=== PATIENT | female | born 1950 | race Caucasian/White ===

== ENCOUNTER → 2016-03-16 | Outpatient (CLI) | payer OTHER ==
[2016-03-16 17:52] LABS: BASO % 0.4 %; BASO ABS # 0.03 K/uL (0-0.2); COMPLETE YES; EOS % 4.5 %; HEMATOCRIT 40.5 % (37-47); IG% 0.1 %; LYMPH ABS # 2.56 K/uL (1.2-3.4); MEAN CELL VOLUME 76.9 fL (80-100); MEAN CORPUSCULAR HEMOGLOBIN 23.7 pg (25-34); MEAN CORPUSCULAR HGB CONC 30.9 g/dl (32-36); MEAN PLATELET VOLUME 10.1 fL (7.4-10.4); MONO % 6.8 %; NEUT % 54.2 %; PLATELET COUNT 294 K/uL (130-400); RED BLOOD COUNT 5.27 M/uL (4.2-5.4); WHITE BLOOD COUNT 7.54 K/uL (4.8-10.8)
[2016-03-16 18:05] LABS: BLOOD UREA NITROGEN 15 mg/dl (7-18); CARBON DIOXIDE 27 mmol/L (21-32); CHLORIDE 106 mmol/L (98-107); GLUCOSE 127 mg/dl (70-99); PHOSPHORUS 2.2 mg/dl (2.5-4.9); POTASSIUM 3.9 mmol/L (3.5-5.1); SODIUM 142 mmol/L (136-145)
[2016-03-17 06:34] LABS: ESTIMATED AVERAGE GLUCOSE 163 mg/dl; HA1C FLAG Normal (Normal)
== END | disposition home or self-care (01) ==
LOC: C.LABMFLN 14:51
PROVIDERS: ATTEND Family Medicine
DX: E11.9 Type 2 diabetes mellitus without complications (principal)

== ENCOUNTER → 2016-06-16 | Outpatient (CLI) | payer OTHER ==
[2016-06-16 18:01] LABS: ESTIMATED AVERAGE GLUCOSE 151 mg/dl; HA1C FLAG Normal (Normal)
[2016-06-16 18:08] LABS: BLOOD UREA NITROGEN 15 mg/dl (7-18); BUN/CREATININE RATIO 13.3 (10-20); CALCIUM 10.9 mg/dl (8.5-10.1); CARBON DIOXIDE 26 mmol/L (21-32); CHLORIDE 107 mmol/L (98-107); GLUCOSE 136 mg/dl (70-99); PHOSPHORUS 2.3 mg/dl (2.5-4.9); SODIUM 142 mmol/L (136-145)
== END | disposition home or self-care (01) ==
LOC: C.LABMFLN 13:26
PROVIDERS: ATTEND Family Medicine
DX: E11.9 Type 2 diabetes mellitus without complications (principal)

== ENCOUNTER → 2016-09-17 | Outpatient (CLI) | payer OTHER ==
[2016-09-17 17:51] LABS: BASO % 0.7 %; BASO ABS # 0.05 K/uL (0-0.2); COMPLETE YES; EOS % 3.2 %; HEMATOCRIT 40.3 % (37-47); IG% 0.1 %; LYMPH % 33.2 %; LYMPH ABS # 2.47 K/uL (1.2-3.4); MEAN CELL VOLUME 77.9 fL (80-100); MEAN CORPUSCULAR HEMOGLOBIN 24.4 pg (25-34); MEAN CORPUSCULAR HGB CONC 31.3 g/dl (32-36); MEAN PLATELET VOLUME 10.2 fL (7.4-10.4); MONO % 6.4 %; NEUT % 56.4 %; PLATELET COUNT 337 K/uL (130-400); RED BLOOD COUNT 5.17 M/uL (4.2-5.4); WHITE BLOOD COUNT 7.45 K/uL (4.8-10.8)
[2016-09-17 18:01] LABS: ALT/SGPT 23 U/L (12-78); BLOOD UREA NITROGEN 14 mg/dl (7-18); BUN/CREATININE RATIO 14.7 (10-20); CALCIUM 10.9 mg/dl (8.5-10.1); CARBON DIOXIDE 28 mmol/L (21-32); CHLORIDE 105 mmol/L (98-107); CHOLESTEROL 176 mg/dl (0-200); CREATININE 0.97 mg/dl (0.60-1.20); GLUCOSE 117 mg/dl (70-99); POTASSIUM 3.9 mmol/L (3.5-5.1); SODIUM 139 mmol/L (136-145); TRIGLYCERIDES 249 mg/dl (0-150); VERY LOW DENSITY LIPOPROT CALC 50 mg/dl
[2016-09-17 18:10] LABS: ALB/GLOB RATIO 1.3 (0.9-2); ALKALINE PHOSPHATASE 66 U/L (45-117); AST/SGOT 14 U/L (15-37); CHOLESTEROL/HDL RATIO 3.2; HDL CHOLESTEROL 55 mg/dl; LDL CHOLESTEROL CALCULATED 71 mg/dl; RHEUMATOID FACTOR < 10.0 U/mL (0-15); THYROID STIMULATING HORMONE 0.838 uIu/ml (0.300-4.500)
[2016-09-18 07:07] LABS: ESTIMATED AVERAGE GLUCOSE 151 mg/dl; HA1C FLAG Normal (Normal)
== END | disposition home or self-care (01) ==
LOC: C.LABMFLN 14:31
PROVIDERS: ATTEND Family Medicine
DX: E11.9 Type 2 diabetes mellitus without complications (principal); E78.5 Hyperlipidemia, unspecified; M15.9 Polyosteoarthritis, unspecified

== ENCOUNTER → 2017-04-02 | Outpatient (CLI) | payer OTHER ==
[2017-04-02 17:54] LABS: ALBUMIN 3.8 gm/dl (3.4-5.0); BLOOD UREA NITROGEN 20 mg/dl (7-18); CALCIUM 10.6 mg/dl (8.5-10.1); CARBON DIOXIDE 30 mmol/L (21-32); GLUCOSE 113 mg/dl (70-99); PHOSPHORUS 2.1 mg/dl (2.5-4.9); POTASSIUM 4.1 mmol/L (3.5-5.1); SODIUM 140 mmol/L (136-145)
[2017-04-03 07:23] LABS: HEMOGLOBIN A1C 6.5 % (4.5-5.6)
== END | disposition home or self-care (01) ==
LOC: C.LABMFLN 13:39
PROVIDERS: ATTEND Family Medicine
DX: R82.90 Unspecified abnormal findings in urine (principal); E11.9 Type 2 diabetes mellitus without complications

== ENCOUNTER → 2017-05-17 | Outpatient (CLI) | payer OTHER ==
[~2017-05-17] MED LIST: AMLO2.5T PO; CETI10TA84 PO; EMPA1TAB PO; LORA-741 PO; LOSA1TAB38 PO; METF-384 PO; NXM/40 PO; OMEG10007 PO; OXYC-57 PO; PIND10TA PO; PRMVC TOP; TROS20TA3 PO
== END | disposition home or self-care (01) ==
LOC: C.LABMFLN 13:02
PROVIDERS: ATTEND Internal Medicine Nephrology
DX: R80.9 Proteinuria, unspecified (principal); E83.52 Hypercalcemia

== ENCOUNTER → 2017-06-08 | Outpatient (CLI) | payer OTHER ==
[2017-06-08 18:07] LABS: ALBUMIN 3.9 gm/dl (3.4-5.0); BLOOD UREA NITROGEN 17 mg/dl (7-18); CALCIUM 10.4 mg/dl (8.5-10.1); CARBON DIOXIDE 28 mmol/L (21-32); CREATININE 0.92 mg/dl (0.60-1.20); GLUCOSE 98 mg/dl (70-99); PHOSPHORUS 2.4 mg/dl (2.5-4.9); POTASSIUM 3.8 mmol/L (3.5-5.1); SODIUM 139 mmol/L (136-145)
[2017-06-08 18:12] LABS: HEMOGLOBIN 11.8 g/dL (12.0-16.0); MEAN CELL VOLUME 77.1 fL (80-100); MEAN CORPUSCULAR HEMOGLOBIN 23.9 pg (25-34); MEAN CORPUSCULAR HGB CONC 31.1 g/dl (32-36); MEAN PLATELET VOLUME 10.1 fL (7.4-10.4); PLATELET COUNT 305 K/uL (130-400); RED CELL DISTRIBUTION WIDTH CV 16.8 % (11.5-14.5); RED CELL DISTRIBUTION WIDTH SD 47.6 fL (36.4-46.3); WHITE BLOOD COUNT 6.62 K/uL (4.8-10.8)
== END | disposition home or self-care (01) ==
LOC: C.LABMFLN 16:02
PROVIDERS: ATTEND Internal Medicine Nephrology
DX: E83.52 Hypercalcemia (principal); R80.9 Proteinuria, unspecified

== ENCOUNTER → 2017-06-11 | Outpatient (CLI) | payer OTHER ==
[2017-06-11 18:19] LABS: ALBUMIN 3.7 gm/dl (3.4-5.0); BLOOD UREA NITROGEN 15 mg/dl (7-18); CALCIUM 10.6 mg/dl (8.5-10.1); CARBON DIOXIDE 28 mmol/L (21-32); CREATININE 0.91 mg/dl (0.60-1.20); GLUCOSE 134 mg/dl (70-99); POTASSIUM 4.2 mmol/L (3.5-5.1); SODIUM 138 mmol/L (136-145)
[2017-06-11 18:20] LABS: PHOSPHORUS 2.5 mg/dl (2.5-4.9)
== END | disposition home or self-care (01) ==
LOC: C.LABMFLN 11:13
PROVIDERS: ATTEND Internal Medicine Nephrology
DX: E83.52 Hypercalcemia (principal)

== ENCOUNTER → 2017-06-25 | Day surgery (SDC) | payer OTHER ==
[2017-05-26 11:16] VITALS: Ht 154.9 cm; Wt 97.8 kg
--- NOTE | 2017-05-26 12:05 | PAT Medication Instructions ---
Service Date May 26, 2017. Current Home Medication List Amlodipine (Norvasc), 2.5 MG PO QAM Cetirizine (Zyrtec), 10 MG PO QAM Empagliflozin (Jardiance), 10 MG PO QAM Esomeprazole Magnesium (Nexium), 40 MG PO HS Estrogens, Conjugated (Premarin), 1 DOSE TOP 2XWEEK Fish Oil ([place]-3), 1 CAP PO QAM Lorazepam (Ativan), 0.5 MG PO AM/HS Losartan Potassium (Cozaar), 100 MG PO QAM Metformin Hcl (Glucophage), 1,000 MG PO BID Oxycodone/Acetaminophen 5MG/325MG (Percocet 5MG/325MG), 1 TABLET PO TID Pindolol (Visken), 10 MG PO BID Trospium Chloride (Trospium Chloride), 20 MG PO AM/HS Medication Instructions For Your Scheduled Surgery - Hold the following medications 2 weeks prior to surgery: Fish Oil ([place]-3), 1 CAP PO QAM - Hold the following medications 24 hours prior to surgery: Estrogens, Conjugated (Premarin), 1 DOSE TOP 2XWEEK - Hold the following medications the morning of surgery: Cetirizine (Zyrtec), 10 MG PO QAM Empagliflozin (Jardiance), 10 MG PO QAM Losartan Potassium (Cozaar), 100 MG PO QAM Metformin Hcl (Glucophage), 1,000 MG PO BID Trospium Chloride (Trospium Chloride), 20 MG PO AM/HS - Take the following medications the morning of surgery with a sip of water: Amlodipine (Norvasc), 2.5 MG PO QAM Lorazepam (Ativan), 0.5 MG PO AM/HS Oxycodone/Acetaminophen 5MG/325MG (Percocet 5MG/325MG), 1 TABLET PO TID (if needed, can be taken up to four hours before surgery) Pindolol (Visken), 10 MG PO BID - Take the following medications as scheduled the night before surgery: Esomeprazole Magnesium (Nexium), 40 MG PO HS Lorazepam (Ativan), 0.5 MG PO AM/HS Metformin Hcl (Glucophage), 1,000 MG PO BID Oxycodone/Acetaminophen 5MG/325MG (Percocet 5MG/325MG), 1 TABLET PO TID Pindolol (Visken), 10 MG PO BID Trospium Chloride (Trospium Chloride), 20 MG PO AM/HS If you have any questions please call us at [phone] or [phone] or [phone]
[2017-05-26 12:43] LABS: BASO % 0.3 %; BASO ABS # 0.02 K/uL (0-0.2); EOS % 2.8 %; EOS ABS # 0.17 K/uL (0-0.5); HEMATOCRIT 36.3 % (37-47); HEMOGLOBIN 11.3 g/dL (12.0-16.0); IG# 0.01 K/uL (0.00-0.02); LYMPH % 33.9 %; LYMPH ABS # 2.05 K/uL (1.2-3.4); MEAN CELL VOLUME 75.9 fL (80-100); MEAN CORPUSCULAR HEMOGLOBIN 23.6 pg (25-34); MEAN CORPUSCULAR HGB CONC 31.1 g/dl (32-36); MEAN PLATELET VOLUME 9.6 fL (7.4-10.4); MONO % 5.6 %; MONO ABS # 0.34 K/uL (0.11-0.59); NEUT % 57.2 %; NEUT ABS # 3.45 K/uL (1.4-6.5); PLATELET COUNT 307 K/uL (130-400); RED CELL DISTRIBUTION WIDTH CV 16.5 % (11.5-14.5); RED CELL DISTRIBUTION WIDTH SD 45.6 fL (36.4-46.3); WHITE BLOOD COUNT 6.04 K/uL (4.8-10.8)
--- NOTE | 2017-05-26 12:49 | DIAGNOSTIC IMAGING REPORT ---
CHEST 2 VIEWS ROUTINE CLINICAL HISTORY: 66 years-old Female presenting with preoperative assessment. TECHNIQUE: PA and lateral views of the chest were obtained. COMPARISON: None. FINDINGS: Left subclavian pacer with leads to the right atrium and right ventricular apex. Atherosclerosis of the mildly tortuous descending thoracic aorta. Cardiac silhouette normal in size. Elevation of the right hemidiaphragm. No focal opacity. No large effusion or pneumothorax. Degenerative changes of the thoracic spine. Upper abdomen normal. IMPRESSION: 1. No acute cardiopulmonary disease. Electronically signed by: Aleksandr Keller M.D. 05/26/2017 12:48 PM Dictated Date/Time: 05/26/2017 12:47 PM
[2017-05-26 12:52] LABS: PTT PATIENT 25.8 SECONDS (21.0-31.0)
[2017-05-26 13:40] LABS: HEMOGLOBIN A1C 6.5 % (4.5-5.6)
[2017-05-26 16:06] LABS: ALBUMIN 3.5 gm/dl (3.4-5.0); CALCIUM 11.2 mg/dl (8.5-10.1); CREATININE 0.84 mg/dl (0.60-1.20)
--- NOTE | 2017-06-03 08:14 | History and Physical ---
History & Physical Date Jun 03, 2017. Chief Complaint left shoulder pain History of Present Illness The patient is a 66 year old female with complaints of left shoulder pain. She is bone on bone of her left shoulder. She has tried conservative therapy with minimal relief. She would like to proceed with scheduled surgery. Past Medical/Surgical History PMHx: Hypertension, anxiety, Type II diabetes PSHx: Pacemaker, cholecystectomy, 2 polyps removed, tonsillectomy, D&C x 3 Additional History Hepatic Disease: No Endocrine Disorder: Yes Kidney Disease: No Hypertension: Yes Heart Disease: No Bleeding Tendencies: No Infectious Diseases: No Allergies Coded Allergies: Adhesives (Verified Allergy, Unknown, SKIN IRRITATION WITH TAPE, 05/26/17) Amoxicillin (Verified Allergy, Unknown, DIZZINESS RASH, 05/26/17) Cefuroxime (Verified Allergy, Unknown, HIVES, 05/26/17) Latex1 -Allergic Contact Dermititis (Verified Allergy, Unknown, RASH, 05/26) Home Medications Scheduled Amlodipine (Norvasc), 2.5 MG PO QAM Cetirizine (Zyrtec), 10 MG PO QAM Empagliflozin (Jardiance), 10 MG PO QAM Esomeprazole Magnesium (Nexium), 40 MG PO HS Estrogens, Conjugated (Premarin), 1 DOSE TOP 2XWEEK Fish Oil ([place]-3), 1 CAP PO QAM Lorazepam (Ativan), 0.5 MG PO AM/HS Losartan Potassium (Cozaar), 100 MG PO QAM Metformin Hcl (Glucophage), 1,000 MG PO BID Oxycodone/Acetaminophen 5MG/325MG (Percocet 5MG/325MG), 1 TABLET PO TID Pindolol (Visken), 10 MG PO BID Trospium Chloride (Trospium Chloride), 20 MG PO AM/HS Physical Examination Skin: warm/dry, no rash Eyes: normal inspection, EOMI ENT: normal ENT inspection Head: normocephalic, atraumatic Neck: supple, no adenopathy Respiratory/Chest: lungs clear, normal breath sounds Cardiovascular: regular rate, rhythm Abdomen / GI: normal bowel sounds, non tender Extremities: normal inspection, + pertinent finding (decreased ROM, Decreased strength flexion to 90 abduction 90 and external rotation 45) Diagnosis Left rotator cuff arthropathy Plan of Treatment Patient is scheduled for a left reverse Total Shoulder arthroplasty. She has failed conservative therapy and would like to proceed with scheduled surgery. Risks and benefits to surgery were discussed with the patient. She understands these risks and wishes to proceed. All questions were answered to her satisfaction.
[~2017-06-25] VITALS: Ht 154.9 cm; Wt 97.8 kg
[~2017-06-25] MED LIST changes: +ACETAMINOPHEN 500 MG TAB PO SCH; +ATROPINE SULFATE 0.1 MG/ML 5ML SYR IV PRN; +DEXAMETHASONE 4 MG TAB PO SCH; +DEXAMETHASONE SOD INJ 4 MG/ML VIAL ONE; +EpHEDrine SULFATE INJ 50 MG/ML AMP IV PRN; +FAMOTIDINE 20 MG TAB PO SCH; +FENTANYL CITRATE INJ 50 MCG/1 ML 2 ML VIAL IV PRN; +GABAPENTIN 300 MG CAP PO SCH; +HYDROmorphone INJ 2 MG/ML SYR/VIAL IV PRN; +LABETALOL HCL IV 5 MG/ML 20ML IV PRN; +LACTATED RINGER'S 1000ML 1,000 ML IV SCH; +MEPERIDINE HCL 25 MG/ML CARP IV PRN; +METOCLOPRAMIDE HCL 10 MG TAB PO SCH; +ONDANSETRON INJ 2 MG/ML 2 ML VIAL IV PRN; +OXYCODONE HCL 10 MG TABCR (OXYCONTIN) PO SCH; +ROPIVACAINE 0.5% 5 MG/ML 30 ML VIAL ONE; +ROPIVACAINE 5MG/ML 30 ML 150 MG, BUPIVACAINE 0.5% MPF INJ 30 ML, EpINEphrine HCL INJ 0.... INFIL SCH; +~ANCEF~ALLERGY NOTED TO ORDERED MEDICATION SCH
== END | disposition home or self-care (01) ==
LOC: C.ACU 09:10
PROVIDERS: ATTEND Orthopaedic Surgery
DX: M25.512 Pain in left shoulder (principal); Z53.09 Procedure and treatment not carried out because of other contraindication

== ENCOUNTER → 2017-06-25 | Outpatient (CLI) | payer OTHER ==
[~2017-06-25] MED LIST changes: -ACETAMINOPHEN 500 MG TAB PO SCH; -ATROPINE SULFATE 0.1 MG/ML 5ML SYR IV PRN; -DEXAMETHASONE 4 MG TAB PO SCH; -DEXAMETHASONE SOD INJ 4 MG/ML VIAL ONE; -EpHEDrine SULFATE INJ 50 MG/ML AMP IV PRN; -FAMOTIDINE 20 MG TAB PO SCH; -FENTANYL CITRATE INJ 50 MCG/1 ML 2 ML VIAL IV PRN; -GABAPENTIN 300 MG CAP PO SCH; -HYDROmorphone INJ 2 MG/ML SYR/VIAL IV PRN; -LABETALOL HCL IV 5 MG/ML 20ML IV PRN; -LACTATED RINGER'S 1000ML 1,000 ML IV SCH; -MEPERIDINE HCL 25 MG/ML CARP IV PRN; -METOCLOPRAMIDE HCL 10 MG TAB PO SCH; -ONDANSETRON INJ 2 MG/ML 2 ML VIAL IV PRN; -OXYCODONE HCL 10 MG TABCR (OXYCONTIN) PO SCH; -ROPIVACAINE 0.5% 5 MG/ML 30 ML VIAL ONE; -ROPIVACAINE 5MG/ML 30 ML 150 MG, BUPIVACAINE 0.5% MPF INJ 30 ML, EpINEphrine HCL INJ 0.... INFIL SCH; -~ANCEF~ALLERGY NOTED TO ORDERED MEDICATION SCH
== END | disposition home or self-care (01) ==
LOC: C.LABMFLN 16:44
PROVIDERS: ATTEND Family Medicine
DX: R30.0 Dysuria (principal)

== ENCOUNTER 2017-07-23 07:20 | Inpatient (IN) | payer OTHER ==
--- NOTE | 2017-06-30 18:25 | History and Physical ---
History & Physical Date June 30, 2017. Chief Complaint Left Shoulder pain History of Present Illness Patient is a 67 year old female who presents with left shoulder pain. She has tried and failed conservative therapy including cortisone injections and physical therapy. She would like to proceed with her scheduled surgery. Surgery is scheduled for 07/23/17 with a plan to home after surgery with self care. Surgery was originally scheduled for 06/25/17 but was canceled due to UTI symptoms. Pt was treated for a yeast infection the week prior to surgery. She did have a urine culture that was negative for infection in the interval, however she is having persistent burning with urination, as well as vaginal itching and swelling. She does have a follow up appointment with her PCP on for her continued symptoms. Past Medical/Surgical History PMHx: Hypertension, anxiety, Type II Diabetes PSHx: Pacemaker, cholecystectomy, 2 polyps removed, tonsillectomy, D&C x 3. Additional History Hepatic Disease: No Endocrine Disorder: Yes (Type 2 Diabetes) Kidney Disease: No Hypertension: Yes Heart Disease: No Bleeding Tendencies: No Infectious Diseases: No Allergies Coded Allergies: Adhesives (Verified Allergy, Unknown, SKIN IRRITATION WITH TAPE, 05/26/17) Amoxicillin (Verified Allergy, Unknown, DIZZINESS RASH, 05/26/17) Cefuroxime (Verified Allergy, Unknown, HIVES, 05/26/17) Latex1 -Allergic Contact Dermititis (Verified Allergy, Unknown, RASH, 05/26) Home Medications Scheduled Amlodipine (Norvasc), 2.5 MG PO QAM Cetirizine (Zyrtec), 10 MG PO QAM Empagliflozin (Jardiance), 10 MG PO QAM Esomeprazole Magnesium (Nexium), 40 MG PO HS Estrogens, Conjugated (Premarin), 1 DOSE TOP 2XWEEK Fish Oil ([place]-3), 1 CAP PO QAM Lorazepam (Ativan), 0.5 MG PO AM/HS Losartan Potassium (Cozaar), 100 MG PO QAM Metformin Hcl (Glucophage), 1,000 MG PO BID Oxycodone/Acetaminophen 5MG/325MG (Percocet 5MG/325MG), 1 TABLET PO TID Pindolol (Visken), 10 MG PO BID Trospium Chloride (Trospium Chloride), 20 MG PO AM/HS Physical Examination Skin: warm/dry, no rash Eyes: normal inspection, sclerae normal ENT: normal ENT inspection, pharynx normal Head: normocephalic, atraumatic Neck: supple, no adenopathy, trachea midline Respiratory/Chest: lungs clear, normal breath sounds Cardiovascular: regular rate, rhythm, no murmur Extremities: normal inspection, + pertinent finding (Decreased ROM and strength in all directions. Flexion to 90, abduction to 90, ER to 45 degrees. ) Addiitonal Comments: X-ray findings: Bone on bone at the GH joint with osteophyte formation of the glenoid as well as the humeral head, significant humeral head elevation with rounding of the humeral head. Diagnosis Left Rotator Cuff Arthropathy Plan of Treatment Treatment options were discussed with the patient. She has failed conservative management of injections, PT, and NSAIDs. Risks, benefits, and alternatives to surgery including but not limited to infection, DVT, pain, stiffness, need for revision surgery, damage to blood vessels, damage to nerves, PE, , were discussed with the patient and she would like to proceed with Left Reverse TSA. All questions were answered. Pt is scheduled for Left reverse total shoulder arthroplasty on 07/23/17. Patient will f/u with her PCP on 07/01/17 to address her urinary symptoms.
[2017-07-08 14:54] VITALS: BMI 41.0
[~2017-07-23] VITALS: Ht 154.9 cm; Wt 97.8 kg
[~2017-07-23 07:20] MED LIST changes: +KRIL1CAP7 PO; +LACTATED RINGER'S 1000ML 1,000 ML IV SCH; -OMEG10007 PO
[2017-07-23] MEDS ORDERED: ATROPINE SULFATE 0.1 MG/ML 5ML SYR IV PRN (07:30)
[2017-07-23] MEDS ORDERED: EpHEDrine SULFATE INJ 50 MG/ML AMP IV PRN (07:30)
[2017-07-23] MEDS ORDERED: PHENYLEPHRINE 100MCG/ML 5ML SYR IV PRN (07:30)
[2017-07-23] MEDS ORDERED: HYDROmorphone INJ 0.5 MG/0.5 ML SYR IV PRN (07:30)
[2017-07-23] MEDS ORDERED: ONDANSETRON INJ 2 MG/ML 2 ML VIAL IV PRN ×2 (07:30→14:45)
[2017-07-23 07:50] VITALS: BP 147/80; PULSE 81; TEMP 37.1; O2SAT 95; Ht 154.9 cm; Wt 97.8 kg
[2017-07-23] MEDS ORDERED: ROPIVACAINE 0.5% 5 MG/ML 30 ML VIAL ONE (08:03)
[2017-07-23] MEDS ORDERED: inhaler INH (08:05)
--- NOTE | 2017-07-23 08:37 | History & Physical Bridge Note ---
H&P Re-Evaluation Bridge Note: I have examined the patient, reviewed the History & Physical and in the interval since the performance of the History & Physical I have noted the following changes of clinical significance: No changes noted
[2017-07-23] MEDS ORDERED: DEXAMETHASONE 4 MG TAB PO SCH (09:00)
[2017-07-23] MEDS ORDERED: GABAPENTIN 300 MG CAP PO SCH (09:00)
[2017-07-23] MEDS ORDERED: VANCOMYCIN IV 1,500 MG in SODIUM CHLORIDE 0.9% 500ML 500 ML IV SCH ×2 (09:00→22:00)
[2017-07-23] MEDS ORDERED: METOCLOPRAMIDE HCL 10 MG TAB PO SCH (09:00)
[2017-07-23] MEDS ORDERED: CeleBREX 200 MG CAP PO SCH (09:00)
[2017-07-23] MEDS ORDERED: ROPIVACAINE 5MG/ML 30 ML 150 MG, BUPIVACAINE 0.5% MPF INJ 30 ML, EpINEphrine HCL INJ 0.... INFIL SCH ×8 (09:00)
[2017-07-23] MEDS ORDERED: FAMOTIDINE 20 MG TAB PO SCH (09:00)
[2017-07-23] MEDS ORDERED: ACETAMINOPHEN 500 MG TAB PO SCH (09:00)
[2017-07-23] MEDS: TRANEXAMIC ACID INJ 1,000 MG x 2 Bags IV SCH ×4 (09:30→10:38)
[2017-07-23] MEDS ORDERED: MIDAZOLAM HCL 1 MG/ML 2ML VIAL ONE (10:02)
[2017-07-23] MEDS ORDERED: FENTANYL CITRATE INJ 50 MCG/1 ML 2 ML VIAL ONE (10:02)
[2017-07-23] MEDS ORDERED: POVIDONE-IODINE OP SOLN 30 ML BTL ONE (11:06)
[2017-07-23] MEDS ORDERED: VANCOMYCIN HCL 1000MG/20ML VIAL ONE (11:07)
[2017-07-23] MEDS ORDERED: BACITRACIN 50000 UNIT VIAL ONE (11:07)
[2017-07-23] MEDS ORDERED: LIDOCAINE HCL 2% 2 ML VIAL (20MG/ML) ONE (12:54)
[2017-07-23] MEDS ORDERED: GLYCOPYRROLATE INJ 0.2 MG/ML VIAL ONE (12:54)
[2017-07-23] MEDS ORDERED: PHENYLEPHRINE HCL INJ 10 MG/ML VIAL ONE (12:54)
[2017-07-23] MEDS ORDERED: SUCCINYLCHOLINE CHLORIDE 20 MG/ML 10 ML VIAL IV ONE (12:54)
[2017-07-23] MEDS ORDERED: ONDANSETRON INJ 2 MG/ML 2 ML VIAL ONE (12:54)
[2017-07-23] MEDS ORDERED: NEOSTIGMINE METHYLSULFATE 5 MG/5 ML SYR ONE (12:54)
[2017-07-23] MEDS ORDERED: PROPOFOL IV EMULSION 10 MG/ML 20 ML VIAL ONE (12:54)
[2017-07-23] MEDS ORDERED: EpHEDrine SULFATE 50MG/5ML SYR ONE (12:54)
[2017-07-23] MEDS ORDERED: ROCURONIUM BROMIDE 10 MG/ML 5 ML VIAL ONE (12:56)
[2017-07-23] MEDS ORDERED: ALBUMIN HUMAN 5% 12.5 GM/250 ML VIAL IV ONE (13:52)
--- NOTE | 2017-07-23 14:08 | [facility] Operative Report ---
Operative Report Operative Date July 23, 2017. Pre-Operative Diagnosis Left rotator cuff arthropathy Post-Operative Diagnosis Left rotator cuff arthropathy same plus biceps tear Procedure(s) Performed Left reverse total shoulder arthroplasty plus biceps tenodesis Surgeon Dr. Crouch Sole Stitcher Hand Surgeon(s) Bahman Mosley PA-C Estimated Blood Loss 400cc Findings As above Specimens A. Left humeral head Drains 2 Hemovac Anesthesia Type General Regional Complication(s) none Disposition Recovery Room / PACU Indications The patient is a 67-year-old female long-standing arthropathy of the left shoulder. She has significant humeral head elevation with articulation of the humeral head with the acromion with acetabular position of the acromion and rounding of the humeral head as well as [id number] glenohumeral joint. She has failed conservative measures including injection and anti-inflammatories. She wishes to proceed with a reverse total shoulder arthroplasty Description of Procedure Risks, benefits and alternatives to surgery including, but not limited to, infection DVT, pain, stiffness, need for revision surgery, failure to relieve all symptoms, damage to blood vessels, damage to nerves, risk of anesthesia were discussed with the patient and they wished to proceed. The patient was identified. Laterality was confirmed and marked. The patient received a preoperative antibiotic as well as an interscalene block. They were transferred to the operating room and placed in the supine position and induced into general endotracheal anesthesia per the anesthesia staff. The patient was then safely transferred to a slight beachchair position. The patient was secured in the Tenet positioner. All pressure points were well padded. The shoulder was prepped and draped in the usual sterile manner with ChloraPrep. The arm was secured in the Spider page. I made a longitudinal incision just lateral to the coracoid, sharply incising through the skin and utilizing Bovie electrocautery to achieve hemostasis. I identified the cephalic vein and mobilized it laterally with the deltoid. I mobilize the pectoralis and mobilize this medially releasing a small portion of the upper border of the pec tendon to improve visualization. I then identified and mobilized the conjoined tendon. I identified the long head of the biceps tendon. The long head of the biceps tendon had significant tendinosis and tearing proximally. I performed an in situ biceps tenodesis with interrupted #2 FiberWire suture. I then released the subscapularis. I pinned into place my humeral head version cutting guide and made my humeral head resection. I then sequentially reamed and sequentially broached. I then placed the trial humeral stem into the shoulder. I placed retractors around the glenoid and then excised the residual biceps tendon stump and glenoid labrum. I elevated the soft tissues and the inferior aspect of the glenoid to improve exposure and released tissues circumferentially. I then positioned and drilled for the central post for the glenoid plate. The glenoid plate was bone grafted with bone taken from the humeral head. I impacted the definitive glenoid plate into position and then placed a total of 4 compression screws that were then locked into position with locking caps. I then placed the glenosphere onto the plate and secured it with a locking screw. I then removed the trial humeral stem and placed the definitive humeral stem. I trialed off of the definitive stem. It was appropriate for a +0 tray and +0 liner. I then locked my definitive humeral tray into position with a torque limiting screw. As I was locking the screw into position and the stem rotated within the metaphyseal bone. 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 I removed the size 9 stem that I had initially excised and inserted. I remove the humeral tray off of this stem. I was a bit concerned that the size 11 which is the next size up stem in this system would impinge onto the medial calcar and cause a fracture. But as the 9 stem had proven to be unstable in rotation I placed an 11 mm stem into the humerus taking care to not overly impact the stem and cause a periprosthetic fracture. We were able to get stability into the poor metaphyseal bone with a size 11 with the stem abutting the medial calcar. The stem was a little proud but was still able to be reduced with a +0 tray and +0 liner. The definitive components used were [employer] Equinox: Humeral press-fit stem: 11 Standard glenoid plate Glenosphere: 38 Humeral tray:+ 0 Humeral polyethylene liner: + 0 I thoroughly irrigated the wound. Deep tissues were anesthetized with an orthomix solution. I then impacted the definitive humeral polyethylene liner into position. I then reduced the shoulder. There was good range of motion and good stability after the reduction. The wound was again thoroughly irrigated and a Betadine soak was performed. A deep drain was placed. The deltopectoral interval was closed with interrupted #1 Ethibond suture. The subcutaneous tissue was closed with interrupted 2-0 Vicryl suture. The skin was closed with shine. A sterile dressing was applied. A sling was placed. All needle and sponge counts were correct at the end of the procedure. The patient was transferred to the PACU in stable condition without apparent complication. The PA-C was necessary for assistance with procedure for assistance in positioning, prepping, draping, retraction and closure. I attest to the content of the Intraoperative Record and any orders documented therein. Any exceptions are noted below.
[2017-07-23] MEDS ORDERED: BISACODYL 10 MG SUPP PR PRN (14:45)
[2017-07-23] MEDS ORDERED: MAGNESIUM HYDROXIDE SUSP 30 ML UDC PO PRN (14:45)
[2017-07-23] MEDS ORDERED: VANCOMYCIN CONSULT ACTIVE PRN (14:45)
[2017-07-23] MEDS ORDERED: LORAZEPAM 0.5 MG TAB PO PRN (14:45)
[2017-07-23] MEDS ORDERED: MoRPHine SULFATE 4 MG/ML 1 ML CARP\\VIAL IV PRN (14:45)
[2017-07-23] MEDS ORDERED: PHENYLEPHRINE 100MCG/ML 5ML SYR ONE (14:54)
[2017-07-23] MEDS ORDERED: PHARMACY GLYCEMIC MGMT CONSULT PRN (15:05)
[2017-07-23] MEDS ORDERED: CARBOHYDRATES FOR HYPOGLYCEMIA PO PRN (15:15)
[2017-07-23] MEDS ORDERED: DEXTROSE 50% 50 ML SYR IV PRN (15:15)
[2017-07-23] MEDS ORDERED: GLUCOSE 10 TABS/TUBE PO PRN (15:15)
[2017-07-23] MEDS ORDERED: GLUCAGON FOR INJ 1 MG VIAL IM PRN (15:15)
[2017-07-23] MEDS ORDERED: GLUCOSE 40% GEL 15 GM TUBE PO PRN (15:15)
--- NOTE | 2017-07-23 15:26 | DIAGNOSTIC IMAGING REPORT ---
LEFT SHOULDER 2 VIEWS HISTORY: Post shoulder surgery COMPARISON: None. FINDINGS: There is no fracture or dislocation. Skin shine and surgical drains are in place. There is a left-sided dual-chamber pacemaker. There is a reverse left total shoulder arthroplasty. The hardware appears intact. Left basilar densities. IMPRESSION: 1. Status post left reverse total shoulder arthroplasty. No evidence for hardware complication. 2. Left basilar densities may represent atelectasis or pneumonia. Electronically signed by: Harvey Garces M.D. 07/23/2017 3:25 PM Dictated Date/Time: 07/23/2017 3:24 PM
--- NOTE | 2017-07-23 15:49 | Pharmacy Progress Note ---
Glycemic Control Intl Consult Date of Service July 23, 2017. Scope Glycemic Pharmacist consulted for glycemic control and to write orders per [facility] inpatient glycemic control protocol Objective Weight (Kilograms): 97.80 Accuchecks BSG (last 24hrs): Test 07/23/17 07:51 Bedside Glucose 106 mg/dl (70-90) HbA1c 6.5% on 05/26/17 Recent Pertinent Medications Outpatient Anti-diabetic Regimen: * Jardiance * Metformin Risk Factors for Insulin Resistance: * Steroids * Recent Surgery * Diet Assessment & Plan ASSESSMENT: * 67yo T2DM female with excellent outpatient control per recent A1c * Pt is maintained on oral antidiabetic agents as an outpatient * Oral agents are not recommended for inpatient use d/t drug interactions, changing PO intake, and difficulty titrating for acute hyper/hypoglycemia. ADA recommends re-initiating outpatient oral agents 1-2 days prior to discharge if/ when appropriate if they were held on admission. * Will hold oral agents for admission and utilize SQ basal bolus insulin regimen which is the recommended regimen for inpatient glycemic control. * Will initiate weight based insulin dosing for insulin dariusz patient * Pt received dexamethasone pre-operatively which can lead to significant long- lasting hyperglycemia. Will dose long acting insulin based on degree of hyperglycemia and titrate based on BSG trends. PLAN FOR INPATIENT GLYCEMIC CONTROL: * Holding outpatient oral diabetes medications * May consider resuming metformin POD#1 if PO intake adequate and renal function WNL * Will hold Jardiance until discharge since it is non-formulary * Basal insulin * Lantus dosing based on BSG x 1 dose today and then re-assess POD#1 * BSG below 140 mg/dl --> 20 units (0.2 units/kg) * BSG 140-199 mg/dl --> 30 units (0.3 units/kg) * BSG 200 mg/dl or above --> 40 units (0.4 units/kg) * Bolus insulin * NovoLog per scale ACHS or Q6hrs while NPO * Goal Range: Low 110 mg/dL - High 140 mg/dL * Correction Factor: 20 mg/dL/unit * Nutritional / Prandial insulin per carb ratio of 1 unit per 6 grams CHO consumed * Please note that the plan above was derived based on current level of insulin resistance and hospital stress. These recommendations are appropriate for inpatient admission only. Plan of care upon discharge will need to be reassessed to avoid potential outpatient hypo/hyperglycemia. Thank you.
--- NOTE | 2017-07-23 15:51 | Anesthesiology Progress Note ---
Anesthesia Post Op Note Date & Time July 23, 2017 at 15:50 Vital Signs Pain Intensity: 0 Vital Signs Past 12 Hours Date Time Temp Pulse Resp B/P (MAP) Pulse Ox O2 Delivery O2 Flow Rate FiO2 07/23/17 15:45 76 16 112/64 99 Nasal Cannula 2 07/23/17 15:30 76 16 103/69 99 Nasal Cannula 2 07/23/17 15:15 36.5 84 16 110/58 99 Nasal Cannula 2 07/23/17 15:05 36.5 84 16 109/63 98 Nasal Cannula 2 07/23/17 14:55 84 16 95/61 99 Oxymask 7 07/23/17 14:45 85 16 96/62 98 Oxymask 7 07/23/17 14:36 36.4 84 16 89/46 93 Oxymask 7 07/23/17 07:50 37.1 81 20 147/80 95 Room Air Notes Mental Status: alert / awake / arousable, participated in evaluation Pt Amnestic to Procedure: Yes Nausea / Vomiting: adequately controlled Pain: adequately controlled Airway Patency, RR, SpO2: stable & adequate BP & HR: stable & adequate Hydration State: stable & adequate Anesthetic Complications: no major complications apparent
[2017-07-23] MEDS: INSULIN ASPART 100 UNITS/ML 3 ML PEN SC SCH ×3 (16:00→20:48)
[2017-07-23 16:15] VITALS: BP 105/67; TEMP 36.4; O2SAT 97
[2017-07-23 16:45] VITALS: BP 103/84; PULSE 75; TEMP 36.4; O2SAT 97
[2017-07-23] MEDS ORDERED: INSULIN GLARGINE SOLOSTAR 100 UNITS/ML 3 ML PEN SC SCH (16:45)
[2017-07-23 17:52] VITALS: BP 115/69; PULSE 76; TEMP 36.6; O2SAT 100
[2017-07-23] MEDS: POTASSIUM CHLORIDE INJ 10 MEQ in SODIUM CHLORIDE 0.9% 1000ML 1,000 ML IV SCH (17:56)
[2017-07-23] MEDS ORDERED: ALUMINUM/MAGNESIUM/SIMETH (MAALOX MAX) 30 ML UDC PO PRN (18:15)
[2017-07-23 18:54] VITALS: BP 108/68; PULSE 86; TEMP 36.6; O2SAT 94
--- NOTE | 2017-07-23 19:10 | Medical Consult ---
Consultation Date of Consultation: July 23, 2017. Attending Physician: Aleksandr Crouch M.D. Reason for Consultation: 67-year-old female with past medical history of hypertension, anxiety, diabetes mellitus type 2, asthma high-grade AV block status post pacemaker, dyslipidemia and severe osteoarthritis. Patient had left shoulder pain and failed conservative therapy as an outpatient including cortisone injections. Diagnosed with Left rotator cuff arthropathy same plus biceps tear. patient presented for elective Left reverse total shoulder arthroplasty plus biceps tenodesis. Tolerated procedure well and we were consulted for medical comanagement Social History Smoking Status: Never Smoker Allergies Coded Allergies: Chlorhexidine (Verified Allergy, Intermediate, BURNING AND RASH, 07/23/17) Adhesives (Verified Allergy, Unknown, SKIN IRRITATION WITH TAPE, 07/23/17) Amoxicillin (Verified Allergy, Unknown, DIZZINESS RASH, 07/23/17) Cefuroxime (Verified Allergy, Unknown, HIVES, 07/23/17) Latex1 -Allergic Contact Dermititis (Verified Allergy, Unknown, RASH, 07/23) Uncoded Allergies: PERFUME (Allergy, Severe, SNEEZES, EYES WATER, SOB, 07/08/17) ENVIRONMENTAL ALLERGIES (Allergy, Unknown, ., 07/08/17) Current Inpatient Medications Current Inpatient Medications Medications (Trade) Dose Ordered Sig/Vanessa Route Start Time Stop Time Status Last Admin Dose Admin Lactated Ringer's 1,000 ml @ 15 mls/hr Q24H IV 07/23/17 06:00 07/24/17 05:59 07/23/17 08:07 15 MLS/HR Amlodipine Besylate (Norvasc Tab) 2.5 mg QAM PO 07/24/17 09:00 08/23/17 08:59 Cetirizine HCl (zyrTEC TAB) 10 mg QAM PO 07/24/17 09:00 08/23/17 08:59 Lorazepam (Ativan Tab) 0.5 mg BID PRN PO 07/23/17 14:45 08/22/17 14:44 Losartan Potassium (coZAAR TAB) 100 mg QAM PO 07/24/17 09:00 08/23/17 08:59 Pantoprazole Sodium (Protonix Tab) 40 mg BID PO 07/23/17 21:00 08/22/17 20:59 Miscellaneous Information (Order Awaiting Action) 1 ea QS N/A 07/24/17 00:00 08/23/17 00:00 Miscellaneous Information (Order Awaiting Action) 1 ea QS N/A 07/24/17 00:00 08/23/17 00:00 Miscellaneous Information (Order Awaiting Action) 1 ea QS N/A 07/24/17 00:00 08/23/17 00:00 Ondansetron HCl (Zofran Inj) 4 mg Q6H PRN IV 07/23/17 14:45 08/22/17 14:44 Potassium Chloride 10 meq/ Sodium Chloride 1,005 ml @ 100 mls/hr Q10H3M IV 07/23/17 17:30 08/22/17 17:29 07/23/17 17:56 100 MLS/HR Vancomycin HCl 1500 mg/Sodium Chloride 530 ml @ 200 mls/hr 2200 IV 07/23/17 22:00 07/24/17 00:38 Oxycodone HCl (Roxicodone Immediate Rel Tab) `1-2 TABS FOR PAIN `1 TAB... Q4H PRN PO 07/23/17 14:45 08/06/17 14:44 Acetaminophen (Tylenol Tab) 1,000 mg Q8 PO 07/23/17 22:00 08/22/17 21:59 Morphine Sulfate (MoRPHine SULFATE INJ) 2 mg Q4H PRN IV 07/23/17 14:45 08/06/17 14:44 Magnesium Hydroxide (Milk Of Magnesia Susp) 30 ml Q6H PRN PO 07/23/17 14:45 08/22/17 14:44 Bisacodyl (Dulcolax Supp) 10 mg DAILY PRN [place] 07/23/17 14:45 08/22/17 14:44 Miscellaneous Information (Consult Glycemic Management Pharmacy) 1 ea UD PRN N/A 07/23/17 15:05 08/22/17 15:04 Insulin Aspart (novoLOG ASPART) SLIDING SCALE ACHS SC 07/23/17 16:00 08/22/17 15:59 07/23/17 18:06 4 UNITS Glucose (Glucose 40% Gel) 15-30 GRAMS 15 GRAMS... UD PRN PO 07/23/17 15:15 08/22/17 15:14 Glucose (Glucose Chew Tab) 4-8 Tablets 4 Tabl... UD PRN PO 07/23/17 15:15 08/22/17 15:14 Dextrose (Dextrose 50% 50ML Syringe) 25-50ML 25ML FOR ... UD PRN IV 07/23/17 15:15 08/22/17 15:14 Glucagon (Glucagon Inj) 1 mg UD PRN IM 07/23/17 15:15 08/22/17 15:14 Carbohydrates (Carbohydrates For Hypoglycemia) 15-30 GRAMS 15 grams if BSG 54-69... UD PRN PO 07/23/17 15:15 08/22/17 15:14 Insulin Glargine (Lantus Solostar Pen) TODAY@1645 MT 07/23/17 16:45 07/23/17 23:59 07/23/17 18:05 30 UNITS Al Hydrox/Mg Hydrox/Simethicone (Maalox Max Susp) 15 ml Q6H PRN PO 07/23/17 18:15 08/22/17 18:14 Review of Systems Review of system Constitutional: No fever / no chills / no sweats / no weakness / no fatigue Eyes: no blurring of vision / no eye pain / no discharge / no redness ENT: no hearing loss / no epistaxis /no swallowing problems Respiratory: no cough / no wheezing / no SOB / no hemoptysis Cardiovascular: no Chest pain / no lower extremity edema / no palpitation Abdomen: no pain / no nausea / no vomiting / no constipation Musculoskeletal: no joint pain / no muscle pain / no joint swelling Genitourinary: no dysuria / no incontinence / no urinary retention Neurologic: no focal weakness / no numbness/tingling / no ataxia Psychiatric: no depression symptoms / no anxiety / no insomnia Endocrine: no excessive thirst / no excessive urination Hematologic: no abnormal bleeding / no bruising / no LN swelling Skin: No rash / no pallor Physical Exam Date Time Temp Pulse Resp B/P (MAP) Pulse Ox O2 Delivery O2 Flow Rate FiO2 07/23/17 18:54 36.6 86 15 108/68 (81) 94 Room Air 07/23/17 17:52 36.6 76 16 115/69 (84) 100 Nasal Cannula 2.5 07/23/17 16:45 36.4 75 16 103/84 (90) 97 Nasal Cannula 2.0 07/23/17 16:18 Nasal Cannula 2.0 07/23/17 16:15 36.4 16 105/67 (80) 97 Nasal Cannula 2.0 07/23/17 15:45 76 16 112/64 99 Nasal Cannula 2 07/23/17 15:30 76 16 103/69 99 Nasal Cannula 2 07/23/17 15:15 36.5 84 16 110/58 99 Nasal Cannula 2 07/23/17 15:05 36.5 84 16 109/63 98 Nasal Cannula 2 07/23/17 14:55 84 16 95/61 99 Oxymask 7 07/23/17 14:45 85 16 96/62 98 Oxymask 7 07/23/17 14:36 36.4 84 16 89/46 93 Oxymask 7 07/23/17 07:50 37.1 81 20 147/80 95 Room Air Physical examination General patient appears to be comfortable, not in acute distress HEENT: Atraumatic , normocephalic /no jaundice /no pallor /anicteric /no dry mucous membrane /normal external ear inspection Neck: Supple /no swelling /central trach Heart: S1/S2 normal/regular rate and rhythm/no gallop /no rub /no murmur Lungs: Clear to auscultation bilaterally/normal chest with expansion/no rhonchi/ no rales/no wheezing/no use of accessory muscles of respiration Abdomen: Soft/nontender/no guarding/no rebound/no organomegaly/no pulsatile mass Musculoskeletal: No swelling/no edema/no tenderness/normal range of motion Neuro exam: Awake alert oriented 3/cranial nerves II through XII appear to be intact/sensation intact/moves all extremities/no abnormal movements Psychiatric evaluation: No depressed mood/normal affect Skin: No rash on exposed skin area/no erythema Extremity: Normal pulse/no pitting edema/no clubbing or cyanosis Endocrine/lymphatic: No obvious lymphadenopathy /no lymphedema Laboratory Results Last 24 Hours Test 07/23/17 07:51 07/23/17 15:16 07/23/17 17:06 Bedside Glucose 106 mg/dl 169 mg/dl 159 mg/dl Assessment & Plan 67-year-old female with past medical history of hypertension, anxiety, diabetes mellitus type 2, asthma high-grade AV block status post pacemaker, dyslipidemia and severe osteoarthritis. Patient had left shoulder pain and failed conservative therapy as an outpatient including cortisone injections. Diagnosed with Left rotator cuff arthropathy same plus biceps tear. patient presented for elective Left reverse total shoulder arthroplasty plus biceps tenodesis. Tolerated procedure well and we were consulted for medical comanagement Assessment: Left rotator cuff arthropathy same plus biceps tear that failed outpatient conservative measures. Patient presented to the hospital for an elective orthopedic procedure Hypertension Dyslipidemia Diabetes mellitus type 2 High-grade AV block status post pacemaker Plan Status post Left reverse total shoulder arthroplasty plus biceps tenodesis went uneventful full Patient tolerated procedure well with minimal blood loss Appears to be stable Continue outpatient medications Insulin sliding scale Follow-up labs Ensure adequate oral/parenteral intake Pain management Physical therapy initiation as per primary orthopedic team DVT prophylaxis as per the choice of primary orthopedic team
[2017-07-23] MEDS: PANTOprazole SOD 40 MG TAB PO SCH (20:44)
[2017-07-23] MEDS: ACETAMINOPHEN 500 MG TAB PO SCH (21:36)
[2017-07-23] MEDS: TROSPIUM: ORDER AWAITING ACTION SCH (23:18)
[2017-07-23 23:21] VITALS: BP 99/63; PULSE 85; TEMP 36.7; O2SAT 91
[2017-07-23] MEDS ORDERED: NURSING VERBAL MED ORDER ONE (23:30)
[2017-07-24 03:04] VITALS: BP 97/64; PULSE 84; TEMP 36.7; O2SAT 98
[2017-07-24] MEDS ORDERED: ALBUTEROL HFA INHALER 8.5 GM INH PRN (04:30)
[2017-07-24] MEDS: POTASSIUM CHLORIDE INJ 10 MEQ in SODIUM CHLORIDE 0.9% 1000ML 1,000 ML IV SCH (06:12)
[2017-07-24] MEDS: ACETAMINOPHEN 500 MG TAB PO SCH (06:13)
[2017-07-24] MEDS: OXYCODONE HCL IR 5 MG TAB (IMMEDIATE RELEASE) PO PRN ×2 (06:13→10:17)
[2017-07-24 06:14] LABS: HEMATOCRIT 27.5 % (37-47); HEMOGLOBIN 8.3 g/dL (12.0-16.0); MEAN CELL VOLUME 75.8 fL (80-100); MEAN CORPUSCULAR HEMOGLOBIN 22.9 pg (25-34); MEAN CORPUSCULAR HGB CONC 30.2 g/dl (32-36); MEAN PLATELET VOLUME 9.7 fL (7.4-10.4); PLATELET COUNT 246 K/uL (130-400); RED CELL DISTRIBUTION WIDTH CV 16.2 % (11.5-14.5); WHITE BLOOD COUNT 7.54 K/uL (4.8-10.8)
[2017-07-24 06:48] LABS: CALCIUM 9.6 mg/dl (8.5-10.1); CREATININE 0.79 mg/dl (0.60-1.20); POTASSIUM 3.6 mmol/L (3.5-5.1)
[2017-07-24 07:22] VITALS: BP 133/84; PULSE 85; TEMP 36.8; O2SAT 99
--- NOTE | 2017-07-24 07:33 | Orthopedic Progress Note ---
Orthopedic Progress Note Date of Service July 24, 2017. Subjective Post OP Day: 1 (Left reverse total shoulder arthroplasty plus biceps tenodesis) Reports: feeling well, pain controlled w PO medications, Denies: complaints, chest pain, SOB, nausea / vomiting, light headedness, calf pain Objective N/V intact, capillary refill less than 2 sec., dressing C/D/I, A&O x3, hemovac drainage (100cc/8 hours) rad/med/ulnar nerves intact Date Time Temp Pulse Resp B/P (MAP) Pulse Ox O2 Delivery O2 Flow Rate FiO2 07/24/17 07:22 36.8 85 16 133/84 (100) 99 Room Air 07/24/17 03:04 36.7 84 14 97/64 (75) 98 Room Air 07/23/17 23:44 Room Air 07/23/17 23:21 36.7 85 16 99/63 (75) 91 Room Air 07/23/17 18:54 36.6 86 15 108/68 (81) 94 Room Air 07/23/17 17:52 36.6 76 16 115/69 (84) 100 Nasal Cannula 2.5 07/23/17 16:45 36.4 75 16 103/84 (90) 97 Nasal Cannula 2.0 07/23/17 16:30 Nasal Cannula 2.0 07/23/17 16:18 Nasal Cannula 2.0 07/23/17 16:15 36.4 16 105/67 (80) 97 Nasal Cannula 2.0 07/23/17 15:45 76 16 112/64 99 Nasal Cannula 2 07/23/17 15:30 76 16 103/69 99 Nasal Cannula 2 07/23/17 15:15 36.5 84 16 110/58 99 Nasal Cannula 2 07/23/17 15:05 36.5 84 16 109/63 98 Nasal Cannula 2 07/23/17 14:55 84 16 95/61 99 Oxymask 7 07/23/17 14:45 85 16 96/62 98 Oxymask 7 07/23/17 14:36 36.4 84 16 89/46 93 Oxymask 7 07/23/17 07:50 37.1 81 20 147/80 95 Room Air Laboratory Results 24 Hours: Test 07/24/17 04:59 Hematocrit 27.5 % Hemoglobin 8.3 g/dL Assessment & Plan Assessment: POD #1 s/p Left reverse total shoulder arthroplasty plus biceps tenodesis plan for d/c home later today with OPPT Discharge Planning Discharge Planning: home, home with oppt
--- NOTE | 2017-07-24 07:36 | Discharge Instructions ---
Discharge Instructions Date of Service July 24, 2017. Admission Reason for Admission: Left Shoulder Osteoarthritis Discharge Discharge Diagnosis / Problem: left shoulder replacement Discharge Goals Goal(s): Decrease discomfort, Improve function, Increase independence Activity Recommendations Activity Limitations: as noted below . Instructions / Follow-Up Instructions / Follow-Up ACTIVITY RECOMMENDATIONS: SELF CARE INSTRUCTIONS AFTER TOTAL SHOULDER ARTHROPLASTY REVERSE A. You may do daily exercises as taught in physical therapy while in hospital. No lifting with the operative arm. B. You are to wear your sling/immobilizer at all times EXCEPT when performing your daily exercises and for hygiene purposes. C. You may perform dry, daily dressing changes. Please keep your incision covered. You may shower 48 hours after surgery. Do not apply soap or any ointment/ lotions directly over incision. Do not soak incision in bath tub/swimming pool. D. You may use ice as needed to operative shoulder. SPECIAL CARE INSTRUCTIONS: VERY IMPORTANT TO READ AND REVIEW A. There are a few signs you need to watch for after you are home. Call [facility] at [phone] if you experience any of the followin. Increased severe shoulder pain. Some pain is expected especially when you exercise. 2. Increased swelling in you shoulder or arm; pain or swelling in either upper extremity. 3. Any fluid drainage from the incision. 4. Shortness of breath or chest pain. B. Please call [facility] at [phone] if you have any questions or concerns about your operation or recovery. C. Call your physician if: 1. Temperature is greater than 101 degrees (F). 2. Pain is not relieved by prescribed pain medications. 3. Increase drainage or redness from incision. 4. Unanswered questions or concerns. FOLLOW UP VISIT: Please call [facility] at [phone] to schedule a follow up appointment with Dr. Crouch or his PA in 12-14 days from your surgery date. Current Hospital Diet Patient's current hospital diet: Diabetes Type 2 Diet Discharge Diet Recommended Diet: Diabetes Type 2 Diet Procedures Procedures Performed: Left reverse total shoulder arthroplasty plus biceps tenodesis Pending Studies Studies pending at discharge: no Laboratory Results Hemoglobin A1c Test 05/26/17 12:16 Range/Units Estimated Average Glucose 140 mg/dl Hemoglobin A1c 6.5 H 4.5-5.6 % Medical Emergencies . Who to Call and When: Medical Emergencies: If at any time you feel your situation is an emergency, please call 911 immediately. . Non-Emergent Contact Non-Emergency issues call your: Primary Care Provider, Surgeon . "Provider Documentation" section prepared by Froylan Hayes. [facility] Drug Monitoring Program Search Results: patient reviewed within database, no issues identified, see additional documentation (Patient should only receive pain medications from one provider during postoperative period) Drug Monitoring Findings: Patient received narcotic Rx from PCP, discussed will only receive narcotic Rx from one provider during post-op period.
[2017-07-24] MEDS ORDERED: RXC5 PO (07:40)
[2017-07-24] MEDS ORDERED: ACET-24 PO (07:40)
[2017-07-24] MEDS: TROSPIUM: ORDER AWAITING ACTION SCH (07:49)
[2017-07-24 07:57] LABS: HEMOGLOBIN 8.9 g/dL (12.0-16.0); RETIC COUNT % 1.7 % (0.5-2.0)
[2017-07-24] MEDS: PANTOprazole SOD 40 MG TAB PO SCH (08:39)
[2017-07-24] MEDS: INSULIN ASPART 100 UNITS/ML 3 ML PEN SC SCH (08:41)
[2017-07-24] MEDS ORDERED: CETIRIZINE HCL 10 MG TAB PO SCH (09:00)
[2017-07-24] MEDS ORDERED: LOSARTAN POTASSIUM 50 MG TAB PO SCH (09:00)
[2017-07-24] MEDS ORDERED: NURSING VERBAL MED ORDER ONE (09:00)
[2017-07-24] MEDS ORDERED: AMLODIPINE BESYLATE 5 MG TAB PO SCH (09:00)
[2017-07-24] MEDS ORDERED: NON-FORMULARY MEDICATION (Empagliflozin (Jardiance) 10 MG) PO SCH (09:00)
[2017-07-24] MEDS ORDERED: KETOROLAC TROMETHAMINE 15 MG/ML VIAL IV. ONE (09:15)
--- NOTE | 2017-07-24 09:42 | Hospitalist Progress Note ---
Hospitalist Progress Note Date of Service July 24, 2017. (Kelly Almanza CRNP) Subjective Pt evaluation today including: conversation w/ patient, chart review, lab review Pain: 6/10 left shoulder pain Voiding: no voiding problems 67 yo female s/p left shoulder arthroplasty. Pt reports left shoulder pain 6/10 this morning after oxycodone 5mg dose. She also notes some nausea and vomiting yesterday evening. Improved this AM. Tolerating PO. + passing flatus. No BM. She reports some tingling of her left hand, improved this morning. Pt reports she lives alone, but is having a friend stay with her over the next few days. Constitutional: No fever, No chills Respiratory: No shortness of breath Cardiovascular: No chest pain Abdomen: No pain, No nausea, No vomiting Musculoskeletal: + problem reported (left shoulder pain ) Female : No dysuria Heme: No abnormal bleeding/bruising (Kelly Almanza CRNP) Objective Vital Signs Date Time Temp Pulse Resp B/P (MAP) Pulse Ox O2 Delivery O2 Flow Rate FiO2 07/24/17 07:22 36.8 85 16 133/84 (100) 99 Room Air 07/24/17 03:04 36.7 84 14 97/64 (75) 98 Room Air 07/23/17 23:44 Room Air 07/23/17 23:21 36.7 85 16 99/63 (75) 91 Room Air 07/23/17 18:54 36.6 86 15 108/68 (81) 94 Room Air 07/23/17 17:52 36.6 76 16 115/69 (84) 100 Nasal Cannula 2.5 07/23/17 16:45 36.4 75 16 103/84 (90) 97 Nasal Cannula 2.0 07/23/17 16:30 Nasal Cannula 2.0 07/23/17 16:18 Nasal Cannula 2.0 07/23/17 16:15 36.4 16 105/67 (80) 97 Nasal Cannula 2.0 07/23/17 15:45 76 16 112/64 99 Nasal Cannula 2 07/23/17 15:30 76 16 103/69 99 Nasal Cannula 2 07/23/17 15:15 36.5 84 16 110/58 99 Nasal Cannula 2 07/23/17 15:05 36.5 84 16 109/63 98 Nasal Cannula 2 07/23/17 14:55 84 16 95/61 99 Oxymask 7 07/23/17 14:45 85 16 96/62 98 Oxymask 7 07/23/17 14:36 36.4 84 16 89/46 93 Oxymask 7 (Kelly Almanza CRNP) Physical Exam General Appearance: no apparent distress, + obese Eyes: normal inspection ENT: hearing grossly normal Neck: supple, no JVD Respiratory/Chest: lungs clear, normal breath sounds, no respiratory distress, no accessory muscle use Cardiovascular: regular rate, rhythm, no JVD Abdomen: non tender, soft, + pertinent finding (diminished bowel sounds ) Extremities: + pertinent finding (strength equal bilaterally to upper extremities; unable to check ROM d/t shoulder sling in place. ) Neurologic/Psychiatric: alert, normal mood/affect, oriented x 3 Skin: normal color (Kelly Almanza CRNP) Laboratory Results Last 24 Hours Test 07/23/17 15:16 07/23/17 17:06 07/23/17 20:40 07/24/17 04:59 Bedside Glucose 169 mg/dl 159 mg/dl 194 mg/dl White Blood Count 7.54 K/uL Red Blood Count 3.63 M/uL Hemoglobin 8.3 g/dL Hematocrit 27.5 % Mean Corpuscular Volume 75.8 fL Mean Corpuscular Hemoglobin 22.9 pg Mean Corpuscular Hemoglobin Concent 30.2 g/dl RDW Standard Deviation 45.0 fL RDW Coefficient of Variation 16.2 % Platelet Count 246 K/uL Mean Platelet Volume 9.7 fL Sodium Level 142 mmol/L Potassium Level 3.6 mmol/L Chloride Level 110 mmol/L Carbon Dioxide Level 26 mmol/L Anion Gap 5.0 mmol/L Blood Urea Nitrogen 13 mg/dl Creatinine 0.79 mg/dl Est Creatinine Clear Calc Drug Dose 73.9 ml/min Estimated GFR () 89.8 Estimated GFR (Non- 77.5 BUN/Creatinine Ratio 15.8 Random Glucose 128 mg/dl Calcium Level 9.6 mg/dl Test 07/24/17 07:46 07/24/17 08:05 Hemoglobin 8.9 g/dL Hematocrit 29.0 % Absolute Reticulocyte Count 0.07 10^6/uL Percent Reticulocyte Count 1.7 % Bedside Glucose 98 mg/dl (Kelly Almanza CRNP) Assessment and Plan POD #1 s/p shoulder arthroplasty Pain Currently 6/10 this morning. Consider Toradol for further pain control. RN to contact ortho to discuss Discussed taking 2 oxycodone rather than 1 for pain level 6 or greater while at home. Advised to use a stool softener such as Colace BID while taking higher dose. Pt noted to already take 3 Percocet chronically for pain control. She should not take Percocet in conjunction with oxycodone. Anemia H&H of 8.3 and 27.5 noted this AM. Hemoglobin in May noted to be 11.8. Repeated this morning, and improved to 8.9 and 29.0. Pt appears hemodynamically stable. Surgical dressing dry and intact. Normal sanguinous drainage observed in hemovac drain this morning. Anemia most likely mutifactorial to hemodilution (2.8L positive), expected surgical blood loss 600ml, and microcytic anemia. Will facilitate f/u with PCP in the next 1-2 weeks for further evaluation of microcytic anemia. DMII Hemoglobin AlC 6.5 in April. Stable while inpatient. Resume metformin and Jardiance as an outpatient. Pt instructed to keep daily log of glucose and to call PCP if elevated. F/u with Dr. Urena for outpatient management. Pulmonary F/u shoulder x-ray revealed possibility of pneumonia vs atelectasis. No fever, sputum, SOB, hypoxia, hemoptysis, pleuritic pain. Lung sounds clear on exam. Continue IS. Oxygenation adequate on room air. No hx of smoking. DVT prophylaxis Chemical prophylaxis per ortho secondary to large bone surgery. PT/OT consult ordered. Increase ambulation as tolerated. Expected discharge home today. HTN Pt instructed to resume home meds. GERD Continue Nexium. Pt OK for d/c home from medical perspective. Will plan for outpatient f/u with PCP for microcytic anemia. Pt discussed with Dr. Mcguire this morning. Please see her addendum for further input. Discharge planning: home (Kelly Almanza CRNP) Reviewed: Pt Seen/Exam by Me (Darcie Mcguire MD) History J[employer] LEAD supervision Note: I interviewed and examined the patient. Discussed with LOR Almanza and agree with findings and plan as documented in the note. Any exceptions or clarifications are listed here: Patient feeling well. Denies chest pain or shortness of breath. Shoulder pain is now controlled with 2 oxycodone. Discussed her long history of severe GERD requiring twice daily dosing of Nexium and history of hypercalcemia from overuse of Tums given breakthrough symptoms. No obvious GI bleeding. She has not had a colonoscopy in over 10 years but is having a ColoGuard test done in the near future. Vitals reviewed Gen: AAOx3, NAD, morbidly obese HEENT: anicteric sclerae, EOMI CV: RRR no mgr nl S1S2 Pulm: CTAB no wcr Ext: No edema in the lower extremities, left upper extremity in shoulder sling with dressing intact clean dry and intact Skin: no rashes, warm/dry Patient is a 67-year-old female here with a left total shoulder arthroplasty, with history of GERD, obesity, microcytosis without definite anemia, hypertension, anxiety disorder, diabetes mellitus type 2, asthma, high-grade AV block status post pacemaker, dyslipidemia and severe osteoarthritis. -Recommended EGD as an outpatient in addition to her Cologuard testing given breakthrough reflux symptoms, history of PUD, and microcytosis -Would recommend iron supplementation orally in the short-term -Otherwise stable for discharge from a medical standpoint Documented By: Darcie Mcguire (Darcie Mcguire MD)
[2017-07-24 10:56] VITALS: BP 133/84; PULSE 85; TEMP 36.8; O2SAT 99
[2017-07-24] MEDS ORDERED: FRRS300 PO (11:10)
[2017-07-24] MEDS ORDERED: METFORMIN HCL 500 MG TAB PO SCH (17:45)
--- NOTE | 2017-07-27 20:04 | Discharge Summary ---
Orthopedic Discharge Summary Admission Date/Reason July 23, 2017 at 08:33 Left Shoulder Osteoarthritis. Discharge Date/Disposition July 24, 2017 Home Diagnosis Principal Diagnosis: Left Rotator Cuff Arthropathy Secondary Diagnoses/Problems: Diabetes Mellitus Type 2 Hypertension Procedure(s) Performed Left Reverse Total Shoulder Arthroplasty with biceps tenodesis Consultations Aleksandar Puente MD Medication Reconciliation New Medications: Ferrous Sulfate (Ferrous Sulfate) 325 Mg Tab 325 MG PO QAM for 30 Days OTC Acetaminophen (Sb Non-Aspirin Extra Stre) 500 Mg Tab 1000 MG PO Q8, #63 TAB Oxycodone HCl (Oxycodone HCl) 5 Mg Tab 5-10 MG PO Q4H PRN for Pain, #60 TAB Continued Medications: Amlodipine (Norvasc) 2.5 Mg Tab 2.5 MG PO QAM, TAB Cetirizine (Zyrtec) 10 Mg Tab 10 MG PO QAM, TAB Empagliflozin (Jardiance) 10 Mg Tab 10 MG PO QAM Esomeprazole Magnesium (Nexium) 40 Mg Capcr 40 MG PO BID, CAP Estrogens, Conjugated (Premarin) 14 Appln/30 Gm Cr 1 DOSE TOP 2XWEEK Krill Oil (Krill Oil Olden-3) 1 Cap Cap 1 CAP PO QAM Lorazepam (Ativan) 0.5 Mg Tab 0.5 MG PO AM/HS, TAB Losartan Potassium (Cozaar) 100 Mg Tab 100 MG PO QAM, TAB Metformin Hcl (Glucophage) 1,000 Mg Tab 1000 MG PO BID, TAB Pindolol (Visken) 10 Mg Tab 10 MG PO BID, TAB Trospium Chloride (Trospium Chloride) 20 Mg Tab 20 MG PO AM/HS [inhaler] () 2 PUFFS INH UD Discontinued Medications: Oxycodone/Acetaminophen 5MG/325MG (Percocet 5MG/325MG) Tab 1 TABLET PO TID, TAB PAIN Admission Physical Exam As per Admitting History & Physical. Hospital Course Patient presented for same day admission following Left Reverse total shoulder arthroplasty on 07/23/17. She tolerated procedure well. Post-operatively, her activity was progressed and well tolerated. Dr. Aleksandar Puente of medical service was consulted for medical management during admission. Please refer to daily progress notes and PT notes for complete details. After exam on , patient was felt to be stable for discharge home with Outpatient PT. Patient will f/u in the office in about 2 weeks for further evaluation including x-rays and incision check, sooner if having any issues or concerns. Discharge Instructions Please refer to the electronic Patient Visit Report (Discharge Instructions) for additional information.
== END 2017-07-24 12:35 | disposition home health service (06) | DRG 483 ==
LOC: C.ACU 07:20 → C.3E 08:33 → ENRESERV 15:49
PROVIDERS: ADMIT Orthopaedic Surgery; ATTEND Orthopaedic Surgery
PROC: 0LQ20ZZ Repair Left Shoulder Tendon, Open Approach (ICD-10-PCS; principal; 2017-07-23 10:10)
PROC: 0RRK00Z Replacement of Left Shoulder Joint with Reverse Ball and Socket Synthetic Substitute, Open Approach (ICD-10-PCS; principal; 2017-07-23 10:10)
DX: M19.012 Primary osteoarthritis, left shoulder (principal); J18.9 Pneumonia, unspecified organism; J98.11 Atelectasis; Z68.41 Body mass index [BMI] 40.0-44.9, adult; M75.22 Bicipital tendinitis, left shoulder; D50.9 Iron deficiency anemia, unspecified; I10 Essential (primary) hypertension; E78.5 Hyperlipidemia, unspecified; E11.9 Type 2 diabetes mellitus without complications; K21.9 Gastro-esophageal reflux disease without esophagitis; J45.909 Unspecified asthma, uncomplicated; F41.9 Anxiety disorder, unspecified; E66.9 Obesity, unspecified; Z95.0 Presence of cardiac pacemaker; Z90.49 Acquired absence of other specified parts of digestive tract; Z79.84 Long term (current) use of oral hypoglycemic drugs; Z79.890 Hormone replacement therapy; Z79.891 Long term (current) use of opiate analgesic; Z79.899 Other long term (current) drug therapy; Z88.0 Allergy status to penicillin; Z88.1 Allergy status to other antibiotic agents; Z91.040 Latex allergy status; Z91.048 Other nonmedicinal substance allergy status

== ENCOUNTER → 2017-10-04 | Outpatient (CLI) | payer OTHER ==
[~2017-10-04] MED LIST changes: +ACET-24 PO; +FRRS300 PO; -LACTATED RINGER'S 1000ML 1,000 ML IV SCH; -OXYC-57 PO; +RXC5 PO; +inhaler INH
[2017-10-04 18:50] LABS: BLOOD UREA NITROGEN 13 mg/dl (7-18); CALCIUM 10.5 mg/dl (8.5-10.1); CARBON DIOXIDE 25 mmol/L (21-32); CREATININE 0.86 mg/dl (0.60-1.20); GLUCOSE 88 mg/dl (70-99); PHOSPHORUS 2.6 mg/dl (2.5-4.9); POTASSIUM 3.8 mmol/L (3.5-5.1); SODIUM 140 mmol/L (136-145)
[2017-10-05 06:49] LABS: HEMOGLOBIN A1C 6.2 % (4.5-5.6)
== END | disposition home or self-care (01) ==
LOC: C.LABMFLN 15:42
PROVIDERS: ATTEND Family Medicine
DX: E11.9 Type 2 diabetes mellitus without complications (principal)

== ENCOUNTER 2021-09-15 09:59 | Inpatient (IN) ==
--- NOTE | 2021-08-25 09:32 | PAT Medication Instructions ---
Medication Instructions Date of Service August 25, 2021 Home Medications Medication Instructions Recorded blood sugar diagnostic (OneTouch #100 ea 10/24/18 Ultra Blue Test Strip) lancets 33 gauge (OneTouch Delica #100 ea 10/24/18 Lancets) esomeprazole magnesium 20 mg 40 mg PO BID #90 cap 12/06/19 capsule,delayed release (Nexium) nystatin 100,000 unit/gram topical 1 applic TOPICAL BID #60 g 12/06/19 cream metformin 1,000 mg tablet 1,000 mg PO BID #180 tab 10/26/20 albuterol sulfate 90 mcg/actuation 2 puff INHALATION Q4H PRN #18 gm 02/13/21 aerosol inhaler hydroxyzine HCl 25 mg tablet 12.5 mg PO HS 90 Days #45 tab 06/09/21 conjugated estrogens 0.625 mg/gram 0.625 mg VAGINAL .weekly #30 g 06/10/21 vaginal cream (Premarin) amlodipine 2.5 mg tablet 2.5 mg PO QAM #90 tab 07/07/21 irbesartan 300 mg tablet 300 mg PO QAM #90 tab 07/07/21 oxycodone-acetaminophen 5 mg-325 1 tab PO Q6H PRN #100 tab 08/05/21 mg tablet dulaglutide 0.75 mg/0.5 mL 0.75 mg SUBCUT .weekly #2 ml 08/17/21 subcutaneous pen injector (Trulicity) pindolol 10 mg tablet 10 mg PO BID #180 tab 08/17/21 esomeprazole magnesium 20 mg capsule,delayed release (Nexium) 40 mg PO BID nystatin 100,000 unit/gram topical cream 1 applic TOPICAL BID metformin 1,000 mg tablet 1,000 mg PO BID cetirizine 10 mg tablet 10 mg PO QAM cyanocobalamin (vitamin B-12) 1,000 mcg tablet 1,000 mcg PO QAM mirabegron 50 mg tablet,extended release 24 hr (Myrbetriq) 50 mg PO QAM melatonin 5 mg tablet 2.5 mg PO HS albuterol sulfate 90 mcg/actuation aerosol inhaler 2 puff INHALATION Q4H PRN hydroxyzine HCl 25 mg tablet 12.5 mg PO HS conjugated estrogens 0.625 mg/gram vaginal cream (Premarin) 0.625 mg VAGINAL .weekly amlodipine 2.5 mg tablet 2.5 mg PO QAM irbesartan 300 mg tablet 300 mg PO QAM oxycodone-acetaminophen 5 mg-325 mg tablet 1 tab PO Q6H PRN dulaglutide 0.75 mg/0.5 mL subcutaneous pen injector (Trulicity) 0.75 mg SUBCUT .weekly pindolol 10 mg tablet 10 mg PO BID rosuvastatin 5 mg tablet 5 mg PO QAM Continue as directed dulaglutide 0.75 mg/0.5 mL subcutaneous pen injector (Trulicity) 0.75 mg SUBCUT .weekly STOP taking 24 hours before surgery nystatin 100,000 unit/gram topical cream 1 applic TOPICAL BID conjugated estrogens 0.625 mg/gram vaginal cream (Premarin) 0.625 mg VAGINAL .weekly DO NOT take the morning of surgery metformin 1,000 mg tablet 1,000 mg PO BID cetirizine 10 mg tablet 10 mg PO QAM cyanocobalamin (vitamin B-12) 1,000 mcg tablet 1,000 mcg PO QAM mirabegron 50 mg tablet,extended release 24 hr (Myrbetriq) 50 mg PO QAM irbesartan 300 mg tablet 300 mg PO QAM Take morning of surgery With a small sip of water, OTHERWISE NOTHING TO EAT OR DRINK AFTER MIDNIGHT: esomeprazole magnesium 20 mg capsule,delayed release (Nexium) 40 mg PO BID albuterol sulfate 90 mcg/actuation aerosol inhaler 2 puff INHALATION Q4H PRN (use if needed; please bring with you to hospital day of surgery if possible) amlodipine 2.5 mg tablet 2.5 mg PO QAM oxycodone-acetaminophen 5 mg-325 mg tablet 1 tab PO Q6H PRN (if needed) rosuvastatin 5 mg tablet 5 mg PO QAM pindolol 10 mg tablet 10 mg PO BID Take evening before surgery esomeprazole magnesium 20 mg capsule,delayed release (Nexium) 40 mg PO BID metformin 1,000 mg tablet 1,000 mg PO BID melatonin 5 mg tablet 2.5 mg PO HS albuterol sulfate 90 mcg/actuation aerosol inhaler 2 puff INHALATION Q4H PRN (if needed) hydroxyzine HCl 25 mg tablet 12.5 mg PO HS oxycodone-acetaminophen 5 mg-325 mg tablet 1 tab PO Q6H PRN (if needed) pindolol 10 mg tablet 10 mg PO BID Other Notes If you have any questions please call us at [phone] or [phone] or [phone] or [phone]
--- NOTE | 2021-08-26 10:04 | Anesthesiology Consultation ---
Date of Service August 26, 2021 Assessment & Plan (1) Encounter for pre-operative examination: - Patient acceptable risk for surgery pending cardiology preop evaluation (scheduled 09/09; Beth Josue). - COVID screening: Per assessment on 08/26: No known COVID-19 positive contacts or current COVID-19 related symptoms. Travel screen negative. Patient vaccinated. Surgeon arranging preop COVID testing. Awaiting results. - S/P Left reverse TSA (07/24/17): Attempt MAC 4 (unable to visualize) > Grade 2 view with glidescope, ETT# 7 + PNB, (small amt of blood noted past nasal pharynx/small laceration of left upper lip). - Check BSG AM DOS - PCP office visit (08/26/21): "Hypertension.. continue pindolol/amlodipine/irbesartan.. Asthma.. use albuterol inhaler prn.. Diabetes mellitus.. continue Trulicity/metformin. Metformin will need to be held starting the day of surgery and will likely.. need postop insulin coverage until metformin can be safely resumed.. Hyperparathyroidism.. mild, chronic, asymptomatic.. Cardiac pacemaker.. Cardiology clearance pending" Chart Review Chart Review: Patient seen in Pre Admission Testing Teaching & Discussion Pre-Anesthesia Teaching/Discussion Notes: Instructed NPO after midnight before surgery,except medications with 15 cc of water. Medication instructions provided according to the PAT guidelines. History Surgery Operation Date: 09/15/21 12:15 Proposed Procedures p Right Total Knee Arthroplasty - Doyle Cota MD Height/Weight Height: 5 ft 2 in Weight: 102.3 kg Allergies Allergy/AdvReac Type Severity Reaction Status Date / Time chlorhexidine Allergy Intermediate Rash, Verified 08/26/21 12:40 burning adhesive Allergy Unknown Skin Verified 08/26/21 12:40 irritation (with tape) amoxicillin Allergy Unknown Dizziness, Verified 08/26/21 12:40 rash cefuroxime Allergy Unknown Hives Verified 08/26/21 12:40 clavulanic acid Allergy Unknown Dizziness, Verified 08/26/21 12:40 [From Augmentin] rash latex Allergy Unknown Rash Verified 08/26/21 12:40 PERFUME Allergy Severe Sneezes, Uncoded 08/26/21 12:40 eyes water, SOB, sinus HAs ENVIRONMENTAL ALLERGIES Allergy Unknown Itchy Uncoded 08/26/21 12:40 eyes, sneezing Medications Home Medications Medication Instructions Recorded Confirmed Last Taken blood sugar diagnostic (OneTouch #100 ea 10/24/18 08/26/21 Unknown Ultra Blue Test Strip) lancets 33 gauge (VivianTouch Delica #100 ea 10/24/18 08/26/21 Unknown Lancets) esomeprazole magnesium 20 mg 40 mg PO BID #90 cap 12/06/19 08/26/21 Unknown capsule,delayed release (Nexium) metformin 1,000 mg tablet 1,000 mg PO BID #180 tab 10/26/20 08/26/21 Unknown cetirizine 10 mg tablet 10 mg PO QAM 12/02/20 08/26/21 Unknown cyanocobalamin (vitamin B-12) 1,000 mcg PO QAM 12/02/20 08/26/21 Unknown 1,000 mcg tablet mirabegron 50 mg tablet,extended 50 mg PO QAM 12/02/20 08/26/21 Unknown release 24 hr (Myrbetriq) melatonin 5 mg tablet 2.5 mg PO HS tab 02/12/21 08/26/21 Unknown albuterol sulfate 90 mcg/actuation 2 puff INHALATION Q4H PRN #18 gm 02/13/21 08/26/21 Unknown aerosol inhaler hydroxyzine HCl 25 mg tablet 12.5 mg PO HS 90 Days #45 tab 06/09/21 08/26/21 Unknown conjugated estrogens 0.625 mg/gram 0.625 mg VAGINAL .weekly #30 g 06/10/21 08/26/21 Unknown vaginal cream (Premarin) amlodipine 2.5 mg tablet 2.5 mg PO QAM #90 tab 07/07/21 08/26/21 Unknown irbesartan 300 mg tablet 300 mg PO QAM #90 tab 07/07/21 08/26/21 Unknown oxycodone-acetaminophen 5 mg-325 1 tab PO Q6H PRN #100 tab 08/05/21 08/26/21 Unknown mg tablet dulaglutide 0.75 mg/0.5 mL 0.75 mg SUBCUT .weekly #2 ml 08/17/21 08/26/21 Unknown subcutaneous pen injector (Trulicity) pindolol 10 mg tablet 10 mg PO BID #180 tab 08/17/21 08/26/21 Unknown rosuvastatin 5 mg tablet 5 mg PO QAM 08/22/21 08/26/21 Unknown Past Medical History Medical History (Updated 08/27/21 @ 13:01 by Valerie Marrero) Acid reflux disease Allergic rhinitis Anxiety Asthma Cardiac pacemaker Implanted 2014 (second pacemaker) Medtronic device. Hx Mobitz type 2 second degree AVB. Follows with [facility] Cardiology [place]. Depression Diabetes mellitus NIDDM Generalized osteoarthritis of multiple sites Hyperlipidemia Hyperparathyroidism Hypertension Iron deficiency anemia Hx Morbid obesity Urinary incontinence Exercise / Class Metabolic Activity III < 4 Walking/Shop/Light housework (uses walker/cane) Past Family History Family History Mother Breast cancer Hypertension Brother Coronary heart disease Family/Other No problems noted. Father Coronary heart disease Grandmother (Maternal) No problems noted. Grandmother (Paternal) Diabetes Other No family history of adverse response to anesthesia Past Surgical History Surgical History H/O colonoscopy H/O dilation and curettage H/O shoulder replacement Left reverse TSA 06/2017: Attempt MAC 4 (unable to visualize) > Grade 2 view with glidescope, ETT# 7 + PNB, (small amt of blood noted past nasal pharynx/small laceration of left upper lip). History of esophagogastroduodenoscopy (EGD) S/P cholecystectomy S/P placement of cardiac pacemaker S/P tonsillectomy and adenoidectomy Past Anesthesia History Difficult Airway (Left reverse TSA (07/24/17): Attempt MAC 4 (unable to visualize) > Grade 2 view with glidescope, ETT# 7 + PNB, (small amt of blood noted past nasal pharynx/small laceration of left upper lip).) and No Family Hx of Anesthesia Complications History of PONV No Hx of PONV and Hx of Motion Sickness (+ vertigo) Social History Smoking Status: Never smoker Do You Dip or Chew Tobacco: No Hx Alcohol Use: No Hx Substance Use: No Review of Systems Patient denies chest pain, shortness of breath, dyspnea on exertion, fever, chills, cough, wheezing, palpitations. Physical Exam Vital Signs VITALS BP 106/56 P 88 TEMP 98.9 SP02 95%RA RESP 16 PHYSICAL Full cervical extension range of motion. Full TMJ range of motion. TMD 4 finger breaths Mallampati Score 2 Dentition: several missing (sides/molars), + implants (planned for further implant dental work 08/27 and fillings 09/12- per patient, she will notify surgeon later today at their visit) Lungs: clear throughout to auscultation Cardiac: regular rate and rhythm, no murmurs noted Spine: normal Carotid arteries: negative bruit Extremities: no edema Lab Results Anesthesia Preop Results Results Anesthesia Widget: WBC 7.90 K/uL (4.8-10.8) 08/26/21 Hgb 13.3 g/dL (12.0-16.0) 08/26/21 Hct 41.2 % (37-47) 08/26/21 Plt 252 K/uL (130-400) 08/26/21 Na 139 mmol/L (136-145) 08/26/21 K 3.9 mmol/L (3.5-5.1) 08/26/21 Cl 105 mmol/L (98-107) 08/26/21 CO2 27 mmol/L (21-32) 08/26/21 BUN 12 mg/dl (6-23) 08/26/21 Creat 0.90 mg/dl (0.6-1.2) 08/26/21 Glucose Level 203 mg/dl (70-99(Fasting)) H 08/26/21 PT 10.6 Seconds (9.0-12.0) 08/26/21 PTT 24.0 Seconds (21.0-31.0) 08/26/21 INR 1.0 (0.9-1.1) 08/26/21 HA1c 7.3 % (4.5-5.6) H 08/26/21 Blood Type A Negative 08/26/21 Antibody Screen NEGATIVE 08/26/21 Testing Electrocardiogram Date: 12/13/20 Atrial sensed ventricular paced rhythm with prolonged AV conduction at 72 bpm. Chest X-Ray Date: 12/13/20 FINDINGS: PA and lateral chest radiographs are compared to study dated 05/26/2017. A 2-lead cardiac pacemaker is unchanged in position. The heart is enlarged noting atherosclerotic calcification of the thoracic aorta. The pulmonary vasculature is noncongested. There is chronic elevation of the right hemidiaphragm. The lungs and pleural spaces are clear. There is no pneumothorax. The skeletal structures are osteopenic. The bony thorax appears intact. A left shoulder arthroplasty is in place. Arthritic change is seen in the right shoulder. IMPRESSION:. Cardiomegaly and cardiac pacemaker. There is no radiographic evidence of congestive failure. No airspace consolidation or pleural effusion is identified. Other Testing Pacer check (04/03/21) Medtronic. AP 3%. RVP 100%. Mode DDDR. 3 years longevity. Normal dual- chamber pacemaker function.
--- NOTE | 2021-09-14 19:11 | History & Physical Report ---
Date of Service September 14, 2021 Assessment & Plan (1) Primary osteoarthritis of right knee: Plan: Treatment options discussed with patient. Risks, benefits and alternatives to surgery including but not limited to infection, DVT, pain, stiffness, need for revision surgery, damage to blood vessels, damage to nerves, PE, , were discussed with the patient and they wish to proceed. Plan on right total knee arthroplasty scheduled for [facility] with Dr. Cota on 09/15/21. Will plan on inpatient rehab post op. Will plan on Xarelto 10mg daily post op for DVT prophylaxis. All questions answered. She will follow up post op. History of Present Illness Chief Complaint: right knee pain Primary Care Provider: Gisselle Urena MD 71 year old female with PMHx significant for DM2, GERD, asthma, HTN, pacemaker who presents with ongoing right knee pain. Pain interfering with daily activities. She has failed conservative measures including injections. She would like to proceed with surgical intervention. Patient denies headaches, sweats, fevers, chills, double vision, blurred vision, cough, sore throat, dysphagia, c hest pain, sob, wheezing, n/v/d/c, numbness, tingling, fatigue, urinary symptoms, mood disorders. ROS positive for right knee pain and stiffness. Allergies Allergy/AdvReac Type Severity Reaction Status Date / Time chlorhexidine Allergy Intermediate Rash, Verified 08/26/21 12:40 burning adhesive Allergy Unknown Skin Verified 08/26/21 12:40 irritation (with tape) amoxicillin Allergy Unknown Dizziness, Verified 08/26/21 12:40 rash cefuroxime Allergy Unknown Hives Verified 08/26/21 12:40 clavulanic acid Allergy Unknown Dizziness, Verified 08/26/21 12:40 [From Augmentin] rash latex Allergy Unknown Rash Verified 08/26/21 12:40 perfume Allergy SNEEZES, Verified 09/12/21 13:19 EYES WATER, SOB, SINUS FLORES Home Medications Medication Instructions Recorded Confirmed Type blood sugar diagnostic (OneTouch #100 ea 10/24/18 08/26/21 Rx Ultra Blue Test Strip) lancets 33 gauge (OneTouch Delica #100 ea 10/24/18 08/26/21 Rx Lancets) esomeprazole magnesium 20 mg 40 mg PO BID #90 caps 12/06/19 08/26/21 Rx capsule,delayed release (Nexium) metformin 1,000 mg tablet 1,000 mg PO BID #180 tabs 10/26/20 08/26/21 Rx cetirizine 10 mg tablet 10 mg PO QAM 12/02/20 08/26/21 History cyanocobalamin (vitamin B-12) 1,000 mcg PO QAM 12/02/20 08/26/21 History 1,000 mcg tablet mirabegron 50 mg tablet,extended 50 mg PO QAM 12/02/20 08/26/21 History release 24 hr (Myrbetriq) melatonin 5 mg tablet 2.5 mg PO HS 02/12/21 08/26/21 History albuterol sulfate 90 mcg/actuation 2 puff inhalation Q4H PRN 02/13/21 08/26/21 Rx aerosol inhaler shortness of breath #18 grams hydroxyzine HCl 25 mg tablet 12.5 mg PO HS 90 days #45 tabs 06/09/21 08/26/21 Rx conjugated estrogens 0.625 mg/gram 0.625 mg vaginal .weekly #30 grams 06/10/21 08/26/21 Rx vaginal cream (Premarin) amlodipine 2.5 mg tablet 2.5 mg PO QAM #90 tabs 07/07/21 08/26/21 Rx irbesartan 300 mg tablet 300 mg PO QAM #90 tabs 07/07/21 08/26/21 Rx oxycodone-acetaminophen 5 mg-325 1 tab PO Q6H PRN pain #100 tabs 08/05/21 08/26/21 Rx mg tablet dulaglutide 0.75 mg/0.5 mL 0.75 mg (0.5 mL) subcut .weekly #2 08/17/21 08/26/21 Rx subcutaneous pen injector mL (Trulicity) pindolol 10 mg tablet 10 mg PO BID #180 tabs 08/17/21 08/26/21 Rx rosuvastatin 5 mg tablet 5 mg PO QAM 08/22/21 08/26/21 History Past Med/Surg History Medical History (Updated 09/14/21 @ 19:09 by Bahman Mosley PA-C) Acid reflux disease Allergic rhinitis Anxiety Asthma Cardiac pacemaker Implanted 2014 (second pacemaker) Medtronic device. Hx Mobitz type 2 second degree AVB. Follows with [facility] Cardiology [place]. Depression Diabetes mellitus NIDDM Generalized osteoarthritis of multiple sites Hyperlipidemia Hyperparathyroidism Hypertension Iron deficiency anemia Hx Morbid obesity Urinary incontinence Surgical History H/O colonoscopy H/O dilation and curettage H/O shoulder replacement Left reverse TSA 06/2017: Attempt MAC 4 (unable to visualize) > Grade 2 view with glidescope, ETT# 7 + PNB, (small amt of blood noted past nasal pharynx/small laceration of left upper lip). History of esophagogastroduodenoscopy (EGD) S/P cholecystectomy S/P placement of cardiac pacemaker S/P tonsillectomy and adenoidectomy Family History Mother Breast cancer Hypertension Brother Coronary heart disease Family/Other No problems noted. Father Coronary heart disease Grandmother (Maternal) No problems noted. Grandmother (Paternal) Diabetes Other No family history of adverse response to anesthesia Social History Smoking Status: Never smoker Second Hand Exposure: Yes (FATHER SMOKED); Hx Alcohol Use: No Hx Substance Use: No Preferred Language: Tamazight Communication Ability: Effective Visual Impairment: Partially Limited Hearing Ability: Normal Natural Sciences Department Chair Required: No Beliefs That Will Affect Care: None marital status: Single Current Living Situation: Alone current occupational status: retired How many Children do You have: 0 Feels Safe at Home: Yes Seatbelt Use: always Assistive Devices: Cane, Glasses and Walker Review of Systems All systems reviewed & are unremarkable except as noted in HPI & below Physical Exam Constitutional: well developed and well nourished; no acute distress Eyes: PERRL, conjunctivae normal, anicteric sclerae ENMT: external ear and nose normal, oropharynx normal Neck: trachea midline, no thyromegaly Respiratory: normal respiratory effort, lungs clear to auscultation Cardiovascular: RRR, no murmur, no edema Musculoskeletal: Right knee: Varus alignmenbt. tenderness medial joint line. Crepitation with ROM. Stable to valgus and varus stress. Positive Randa's. ROM 10-100 degrees. Skin: no rashes, warm and dry Neurologic: patellar DTR's 2+ bilat, sensation intact Psychiatric: A+Ox3, euthymic affect Results & Data ([facility]) Diagnostic Findings Right knee: Severe endstage osteoarthritis right knee with bone on bone articulation. She has subluxation of femur on tibia. There is bone loss medially. There are periarticular osteophyte formation.
[~2021-09-15 09:59] MED LIST changes: -ACET-24 PO; +ACETAMINOPHEN 500 MG TAB PO SCH; -AMLO2.5T PO; +BUPIVACAINE 0.25% 30 ML VIAL ONE; +BUPIVACAINE 0.5 % 5 MG/1 ML PF 10ML VIAL ONE; -CETI10TA84 PO; +CeleBREX 200 MG CAP PO SCH; +DEXAMETHASONE SOD INJ 4 MG/ML VIAL ONE; -EMPA1TAB PO; +EPINEPHrine INJ 1 MG/ML AMP ONE; +FAMOTIDINE 20 MG TAB PO SCH; -FRRS300 PO; +GABAPENTIN 300 MG CAP PO SCH; +KETAMINE HCL INFIL SCH; +KETOROLAC INFIL SCH; -KRIL1CAP7 PO; +LIDOCAINE 2% 2 ML VIAL/AMP(20MG/ML) INFIL ONE; -LORA-741 PO; -LOSA1TAB38 PO; +LR 500ML BOLUS, THEN 15ML/HR IV SCH; -METF-384 PO; +METOCLOPRAMIDE HCL 10 MG TABLET PO SCH; +MIDAZOLAM HCL 1 MG/ML 2ML VIAL ONE; -NXM/40 PO; -PIND10TA PO; -PRMVC TOP; +PROPOFOL IV EMULSION 10 MG/ML 20 ML VIAL IV ONE; -RXC5 PO; +TRANEXAMIC ACID 1,000 MG **IV Intra-op IV SCH; +TRANEXAMIC ACID 1,000 MG **IV Pre-op IV SCH; -TROS20TA3 PO; +VANCOMYCIN HCL 1,500 MG in SODIUM CHLORIDE 0.9% 500 ML IV SCH; +[UNRECOGNIZED DRUG - OTHER] INFIL SCH; +fentaNYL citrate 100 MCG/2 ML VIAL ONE; -inhaler INH
[2021-09-15] MEDS ORDERED: ORTHO JOINT ANESTHETIC ONE (10:59)
--- NOTE | 2021-09-15 11:41 | History & Physical Bridge Note ---
Date of Service September 15, 2021 History & Physical Bridge Note I have examined the patient, reviewed the History & Physical and in the interval since the performance of the History & Physical I have noted the following changes of clinical significance: no changes noted
[2021-09-15] MEDS ORDERED: ATROPINE SULFATE 0.1 MG/ML 10ML SYR IV PRN (11:45)
[2021-09-15] MEDS ORDERED: ONDANSETRON INJ 2 MG/ML 2 ML VIAL IV PRN ×2 (11:45→16:20)
[2021-09-15] MEDS ORDERED: fentaNYL citrate 100 MCG/2 ML VIAL IV PRN (11:45)
[2021-09-15] MEDS ORDERED: ePHEDrine sulfate 50 MG/ML AMP IV PRN (11:45)
[2021-09-15] MEDS ORDERED: PROMETHAZINE HCL 6.25 MG in SODIUM CHLORIDE 0.9% 50 ML IV PRN (11:45)
[2021-09-15] MEDS ORDERED: HYDROmorphone INJ 2 MG/ML SYR/VIAL ONE (11:59)
[2021-09-15] MEDS ORDERED: PHENYLEPHRINE 100MCG/ML 5ML SYR ONE (12:01)
[2021-09-15] MEDS ORDERED: ROPIVACAINE 0.5% HCL/PF 150 MG, BUPIVACAINE 0.75% MPF 20 ML, EPINEPHrine 30MG/30ML (OR ... INFIL SCH (12:15)
[2021-09-15] MEDS ORDERED: PROPOFOL IV EMULSION 10 MG/ML 20 ML VIAL IV ONE (12:59)
[2021-09-15] MEDS ORDERED: ONDANSETRON INJ 2 MG/ML 2 ML VIAL ONE (12:59)
[2021-09-15] MEDS ORDERED: ePHEDrine sulfate 50 MG/ML SYR ONE (13:13)
[2021-09-15] MEDS ORDERED: fentaNYL citrate 100 MCG/2 ML VIAL ONE (13:28)
--- NOTE | 2021-09-15 13:58 | Operative Report ---
Post Operative Report Pre & Post Diagnosis Operation Date: 09/15/21 11:55 Pre-Op Diagnosis: Right Knee Osteoarthritis, obesity BMI 41.1 Post-Op Diagnosis: Right Knee Osteoarthritis, obesity BMI 41.1 I identified the patient and participated in the time-out.: Yes Procedure Operation Date: 09/15/21 11:55 Actual Procedures p Right Total Knee Arthroplasty, application superficial wound VAC- Doyle Cota MD Surgeon Doyle Cota MD Chief Ii Dispatcher Anibal VACA Estimated Blood Loss 5 Findings Consistent with Post-Op Diagnosis Specimens Bone cuts Drains 2 Hemovac Anesthesia Type General Regional Complications none Disposition Disposition: Recovery Room Indications 71-year-old female with severe tricompartmental osteoarthritis right knee with very limited motion and chronic pain. Radiographs demonstrate that she has tricompartmental osteophytes tricompartmental degenerative arthritis [id number] medial compartment. Description of Procedure Patient taken to the operating room the size under general regional block anesthesia. Patient was placed supine on the operating table. A pneumatic tourniquet was placed about the obese right upper thigh. The right lower extremity was prepped and draped in sterile fashion. Knee exam demonstrated moderate obesity most of her obesity was abdominal but some in the upper thigh. Range of motion was limited with flexion contracture of 15 degrees with flexion to 90 degrees of passive motion. The leg was elevated exsanguinated with an Esmarch bandage and pneumatic tourniquet was raised to 350 millimeters of mercury. Skin incised sharply in longitudinal fashion. Subcutaneous flaps elevated. Incision was made through the medial retinaculum extending up in the mid third of the quadriceps tendon and down to the medial tibial tubercle. Intra-articular findings demonstrated tricompartmental osteoarthritis [id number] medial and lateral compartments with notch stenosis across the notch with absent ACL and intact PCL with loose bodies tricompartmental osteophytes including very large patellar osteophytes.. The Quest appn total knee arthroplasty system was used. To expose the knee the infrapatellar fat pad was resected. The meniscal remnants and posterior cruciate ligament were resected. The anterior fat pad over the femur in the area of the anterior flange of the femoral component was resected. Lateral synovial bands released. All loose bodies were removed. The femur was exposed. An intramedullary drill hole was made into the canal. A guide tyson was placed. Distal femoral cutting guide was adjusted to resect a 5 degree valgus cut with 10 millimeters distal femur resected. It was noted that in general that the bone was soft consistent with some degree of osteopenia or osteoporosis. The knee was extended and a subperiosteal peel lateral release was performed around the patella. Patella width was measured and width was reproduced using a freehand cut technique and a 33 x 9 symmetrical patella component. The 3 drill holes were made and the excess lateral facet was beveled off to prevent any impingement. Attention was taken back to the femur which was exposed with retractors and the femoral sizing guide was pinned in position. The drill holes were placed in 3 of external rotation to match epicondylar axis. Femur sized for a 4 component. The 4-in-1 cutting block was placed and then the anterior posterior and chamfer cuts are made. The tibia was then subluxed. The external tibial cutting guide was just to make a perpendicular cut to the long axis of the tibia below the most deficient bone loss side. A lamina administration professional was used and the flexion extension gaps were balanced. This required a medial posterior medial release. All posterior osteophytes removed. All meniscal remnants were resected. The tibia exposed and the trial tibial component size 3 was externally rotated in line with the tibial tubercle and pinned in position. The drill and punch for stem was used. The notch cutting device was centered appropriately and the femoral notch cut was made. The femoral trial was inserted. Trial tibial inserts were placed and size 11 gave balanced ligaments through flexion and extension. Patella tracking was assessed. The patella tracked centrally. The trial components were then removed and the orthomix anesthetic cocktail was injected per protocol. The knee was then copiously irrigated with pulsatile lavage saline solution. Final components were then cemented with Refobacin cement. Final components were Monarch triathlon size 4 right posterior stabilized femoral component, a triathlon total knee universal tibial baseplate with a 12 x 50 mm cemented stem and a S 33 x 9 symmetrical patella. After the cement cured the Betadine soak was used for 3 minutes. Further pulsatile lavage irrigation was then performed and 2 Hemovac drains were brought out laterally. The quadriceps tendon and medial retinaculum were closed with figure of 8 #1 Vicryl sutures. The knee was taken through full range of motion and the repair was secure. Knee range of motion was 0 through 125 degrees. The subcutaneous tissues were closed with 2-0 Vicryl sutures. Skin was closed with shine. Maria Antonia and Acticoat superficial wound VAC was applied. The patient tolerated the procedure well. Anibal VACA was my physician real estate assistant who participated as assistant professor of anthropology and was involved in all aspects of the procedure includingleg positioning ,soft tissue retraction and instrument management and participated in the closing application of superficial wound VAC and will participate in postoperative care of the patient. The patient tolerated the procedure well. I attest to the content of the Intraoperative Record and any orders documented therein. Any exceptions are noted below.
--- NOTE | 2021-09-15 15:19 | Anesthesiology Progress Note ---
Date of Service September 15, 2021 Anesthesia Post Procedure Vital Signs Vital Signs: Temp Pulse Pulse Resp BP Pulse Ox O2 Del Method 09/15/21 15:15 36.5 C 78 13 117/74 93 Room Air 09/15/21 15:05 79 13 108/74 99 Oxymask 09/15/21 14:55 82 12 122/66 98 Oxymask 09/15/21 14:45 78 13 109/63 100 Oxymask 09/15/21 14:35 37.1 C 82 18 123/79 97 Oxymask 09/15/21 10:24 37.1 C 86 20 139/92 95 Room Air O2 Flow Rate 09/15/21 15:15 09/15/21 15:05 5 09/15/21 14:55 5 09/15/21 14:45 5 09/15/21 14:35 8 09/15/21 10:24 Transfer of Care Handoff Completed per policy Notes Mental Status: alert / awake / arousable Patient Amnestic to Procedure: Yes Nausea / Vomiting: adequately controlled Pain: adequately controlled Airway Patency, RR, SpO2: stable & adequate BP & HR: stable & adequate Hydration State: stable & adequate Anesthetic Complications: no major complications apparent
--- NOTE | 2021-09-15 16:03 | XRay Report ---
RIGHT KNEE 2 VIEWS History: Right total knee arthroplasty. Degenerative arthritis. Postop. FINDINGS: The patient is status post a right total knee arthroplasty. The hardware is intact. No frac ture or dislocation. Skin shine and surgical drains are in place. IMPRESSION: Right total knee arthroplasty. No evidence for hardware complication. ACT 112: Negative or not required by law. Electronically signed by: Harvey Garces M.D. 09/15/2021 4:02 PM
[2021-09-15] MEDS ORDERED: ALBUTEROL HFA 8 GM INHALER INH PRN (16:20)
[2021-09-15] MEDS ORDERED: bisacodyL 10 MG SUPP PR PRN (16:20)
[2021-09-15] MEDS ORDERED: NALOXONE HCL 0.4 MG/1 ML VIAL/CARP IV PRN (16:20)
[2021-09-15] MEDS ORDERED: PHARMACY GLYCEMIC MGMT CONSULT PRN (16:20)
[2021-09-15] MEDS ORDERED: HYDROmorphone INJ 0.5 MG/0.5 ML SYR IV PRN (16:20)
[2021-09-15] MEDS ORDERED: MAGNESIUM HYDROXIDE SUSP 30 ML UDC PO PRN (16:20)
[2021-09-15] MEDS ORDERED: VANCOMYCIN CONSULT ACTIVE PRN (16:20)
[2021-09-15] MEDS ORDERED: METOCLOPRAMIDE HCL INJ 5 MG/ML 2 ML VIAL IV PRN (16:20)
[2021-09-15] MEDS: SODIUM CHLORIDE 0.9% 1000ML 1,000 ML IV SCH (16:53)
[2021-09-15] MEDS ORDERED: DEXTROSE 50% 50 ML SYRINGE IV PRN (17:00)
[2021-09-15] MEDS ORDERED: GLUCOSE 10 TAB/TUBE PO PRN (17:00)
[2021-09-15] MEDS ORDERED: CARBOHYDRATES FOR HYPOGLYCEMIA PO PRN (17:00)
[2021-09-15] MEDS ORDERED: GLUCOSE 40% GEL 15 GM TUBE PO PRN (17:00)
[2021-09-15] MEDS ORDERED: GLUCAGON FOR INJ 1 MG VIAL IM PRN (17:00)
[2021-09-15] MEDS: INSULIN ASPART PER UNIT SC SCH ×2 (17:18→21:05)
[2021-09-15] MEDS ORDERED: LANTUS PER UNIT CHARGE SQ ONE (17:30)
--- NOTE | 2021-09-15 19:51 | Pharmacy Report ---
Pharmacy Glycemic Short Note 2 - Date of Service September 15, 2021 - Glycemic Short BSG Results (Last 24 hours): 09/15/21 09/15/21 10:40 16:58 POC Glucose 166 H 194 H OUTPATIENT ANTIDIABETIC REGIMEN: * Metformin 1000 mg PO BIDM * Trulicity 0.75 mg SC every Wednesday * HbA1c = 7.3% (08/26/21) ASSESSMENT: * Patient is a 71 yo F admitted post-operatively following a right total knee arthroplasty. Patient does have a history of T2DM, but does not require insulin at home. Pharmacy has been consulted to assist with inpatient glycemic management. * Pre-operative BSG was 166 mg/dL. Post-operative BSG was 194 mg/dL. Patient did received 4 mg IV Dexamethasone intra-operatively. No further steroid doses ordered. * Patient is ordered a T2DM diet. Will give a one time dose of Lantus to cover intra-operative Dexamethasone dose. Will start Novolog based on a weight/stress of 2-3. Added one overnight check given patient has already refused a dose of Novolog. Targeting a goal range of 110-140 mg/dL to prevent post-operative infection and help with wound healing. PLAN FOR INPATIENT GLYCEMIC CONTROL: * Hold outpatient oral diabetes medications * Basal insulin * Lantus 25 units SC x 1 * Bolus insulin * NovoLog per scale ACHS or Q6hrs while NPO * Goal Range: Low 110 mg/dL - High 140 mg/dL * Correction Factor: 20 mg/dL/unit * Nutritional / Prandial insulin per carb ratio of 1 unit per 7 grams CHO consumed
[2021-09-15] MEDS: MELATONIN 3 MG TAB PO SCH (20:47)
[2021-09-15] MEDS: hydrOXYzine HCl 25 MG TAB PO SCH (20:48)
[2021-09-15] MEDS: DOCUSATE SODIUM 100 MG CAP PO SCH (20:56)
[2021-09-15] MEDS: SENNA 8.6 MG TAB PO SCH (20:56)
[2021-09-15] MEDS ORDERED: PANTOprazole 40 MG TAB PO SCH (21:00)
[2021-09-15] MEDS: ACETAMINOPHEN 500 MG TAB PO SCH (21:59)
[2021-09-15] MEDS ORDERED: ESOMEPRAZOLE PO SCH (22:30)
[2021-09-15] MEDS: ESOMEPRAZOLE PO SCH (23:14)
[2021-09-15] MEDS: oxyCODONE HCL IR 5 MG TAB (IMMEDIATE RELEASE) PO PRN (23:18)
[2021-09-16] MEDS ORDERED: VANCOMYCIN HCL 1,500 MG in SODIUM CHLORIDE 0.9% 250 ML IV SCH (00:45)
[2021-09-16] MEDS ORDERED: VANCOMYCIN HCL 1,500 MG in SODIUM CHLORIDE 0.9% 500 ML IV SCH (00:45)
[2021-09-16] MEDS ORDERED: INSULIN ASPART PER UNIT SC SCH ×2 (02:00)
[2021-09-16] MEDS: SODIUM CHLORIDE 0.9% 1000ML 1,000 ML IV SCH (02:19)
[2021-09-16] MEDS: ACETAMINOPHEN 500 MG TAB PO SCH ×3 (06:08→22:05)
--- NOTE | 2021-09-16 07:54 | Orthopedic Progress Note ---
Date of Service September 16, 2021 Assessment & Plan (1) Primary osteoarthritis of right knee: Plan: Postop day #1 right total knee -PT/OT -Pain management as written -DVT prophylaxis: SCDs, teds, Xarelto 10 mg daily -A.m. labs pending -Discharge planning: Patient currently inpatient rehab. She would like to get evaluated. Case management consult has been placed. Admission and Anticipated Discharge Date Admission Date: September 15, 2021 Subjective Patient is postop day 1 right total knee. She is sitting in bedside. Pain is controlled. No current complaints. Denies chest pain, shortness of breath, lightheadedness, dizziness, nausea/vomiting/diarrhea. Review of Systems Review of Systems: All systems reviewed & are unremarkable except as noted in Subjective Physical Exam Physical Exam: Right knee: Dressing is clean, dry, intact. No calf tenderness. Toes are mobile with good dorsiflexion. Distally neurovascular status and sensation intact. Constitutional: WD/WN, vitals as above Results & Data ([facility]) Vital Signs (Past 12 Hours) Vital Signs Temp Pulse Resp BP Pulse Ox O2 Del Method 09/16/21 07:31 36.7 C 91 H 18 126/67 94 Room Air 09/16/21 04:28 36.7 C 84 18 113/68 94 Room Air 09/15/21 23:34 36.8 C 92 H 22 120/73 93 Room Air 09/15/21 19:54 36.5 C 66 22 106/66 96 Room Air
[2021-09-16] MEDS: MIRABEGRON ER 25 MG TAB PO SCH (08:24)
[2021-09-16] MEDS: amLODIPine BESYLATE 5 MG TAB PO SCH (08:25)
[2021-09-16] MEDS: RIVAROXABAN 10 MG TABLET PO SCH (08:25)
[2021-09-16] MEDS: ROSUVASTATIN CALCIUM 5 MG TAB PO SCH (08:26)
[2021-09-16] MEDS: CYANOCOBALAMIN (B-12) 500 MCG TABLET PO SCH (08:27)
[2021-09-16] MEDS: DOCUSATE SODIUM 100 MG CAP PO SCH ×2 (08:27→20:40)
[2021-09-16] MEDS: IRBESARTAN 150 MG TAB PO SCH (08:27)
[2021-09-16] MEDS: MULTIVITAMIN TAB PO SCH (08:27)
[2021-09-16] MEDS: ZYRTEC PO SCH (08:28)
[2021-09-16] MEDS: ESOMEPRAZOLE PO SCH ×2 (08:28→20:36)
[2021-09-16] MEDS: oxyCODONE HCL IR 5 MG TAB (IMMEDIATE RELEASE) PO PRN ×3 (08:35→21:46)
[2021-09-16] MEDS: INSULIN ASPART PER UNIT SC SCH ×4 (08:38→20:48)
[2021-09-16 08:56] LABS: Hematocrit (blood only) 33.8 % (34.1-44.9); Hemoglobin 10.9 g/dl (12.0-16.0); Mean Corpuscular Hemoglobin 26.4 pg (25.0-34.0); Mean Corpuscular Hgb Conc 32.2 g/dL (32.0-36.0); Mean Corpuscular Volume 81.8 fL (80.0-100.0); Mean Platelet Volume 10.6 fL (9.4-12.3); Platelet Count 213 K/uL (130-400); RDW Coefficient of Variation 14.7 % (11.5-14.5); RDW Standard Deviation 43.4 fL (36.4-46.3); Red Blood Count 4.13 M/uL (3.93-5.22)
[2021-09-16] MEDS ORDERED: CETIRIZINE HCL 10 MG TABLET PO SCH (09:00)
[2021-09-16 09:21] LABS: BUN Creatinine Ratio 16.5 (10-20); Calcium 9.6 mg/dl (8.5-10.1); Creatinine Clr Calc Pharmacy 73.1 ml/min; Est GFR (African American) 87.3 ml/min; Est GFR (Non-African American) 75.3 ml/min; Potassium 4.1 mmol/L (3.5-5.1)
[2021-09-16] MEDS: MELATONIN 3 MG TAB PO SCH (20:37)
[2021-09-16] MEDS: SENNA 8.6 MG TAB PO SCH (20:37)
[2021-09-16] MEDS: hydrOXYzine HCl 25 MG TAB PO SCH (20:39)
--- NOTE | 2021-09-16 20:48 | Hospitalist Consultation ---
Date of Consultation September 16, 2021 Assessment & Plan (1) Primary osteoarthritis of right knee: as per primary service. (2) Hypertension: resume home meds (3) Hyperparathyroidism: stable (4) Hyperlipidemia: resume rosuvastatin (5) Diabetes mellitus: consult glycemic control Plan Patient is medically stable for discharge. History of Present Illness Attending Physician: Doyle Cota MD Allergies Allergy/AdvReac Type Severity Reaction Status Date / Time chlorhexidine Allergy Intermediate Rash, Verified 09/15/21 10:36 burning adhesive Allergy Unknown Skin Verified 09/15/21 10:36 irritation (with tape) amoxicillin Allergy Unknown Dizziness, Verified 09/15/21 10:36 rash cefuroxime Allergy Unknown Hives Verified 09/15/21 10:36 clavulanic acid Allergy Unknown Dizziness, Verified 09/15/21 10:36 [From Augmentin] rash latex Allergy Unknown Rash Verified 09/15/21 10:36 perfume Allergy SNEEZES, Verified 09/15/21 10:36 EYES WATER, SOB, SINUS FLORES Home Medications Medication Instructions Recorded Confirmed Type blood sugar diagnostic (OneTouch #100 ea 10/24/18 08/26/21 Rx Ultra Blue Test Strip) lancets 33 gauge (OneTouch Delica #100 ea 10/24/18 08/26/21 Rx Lancets) esomeprazole magnesium 20 mg 40 mg PO BID #90 caps 12/06/19 09/15/21 Rx capsule,delayed release (Nexium) metformin 1,000 mg tablet 1,000 mg PO BID #180 tabs 10/26/20 09/15/21 Rx cetirizine 10 mg tablet 10 mg PO QAM 12/02/20 09/15/21 History cyanocobalamin (vitamin B-12) 1,000 mcg PO QAM 12/02/20 09/15/21 History 1,000 mcg tablet mirabegron 50 mg tablet,extended 50 mg PO QAM 12/02/20 09/15/21 History release 24 hr (Myrbetriq) melatonin 5 mg tablet 2.5 mg PO HS 02/12/21 09/15/21 History albuterol sulfate 90 mcg/actuation 2 puff inhalation Q4H PRN 02/13/21 09/15/21 Rx aerosol inhaler shortness of breath #18 grams hydroxyzine HCl 25 mg tablet 12.5 mg PO HS 90 days #45 tabs 04/11/22 07/18/22 Rx conjugated estrogens 0.625 mg/gram 0.625 mg vaginal .weekly #30 grams 06/10/21 09/15/21 Rx vaginal cream (Premarin) amlodipine 2.5 mg tablet 2.5 mg PO QAM #90 tabs 07/07/21 09/15/21 Rx irbesartan 300 mg tablet 300 mg PO QAM #90 tabs 07/07/21 09/15/21 Rx oxycodone-acetaminophen 5 mg-325 1 tab PO Q6H PRN pain #100 tabs 08/05/21 09/15/21 Rx mg tablet dulaglutide 0.75 mg/0.5 mL 0.75 mg (0.5 mL) subcut .weekly #2 08/17/21 09/15/21 Rx subcutaneous pen injector mL (Trulicity) pindolol 10 mg tablet 10 mg PO BID #180 tabs 08/17/21 09/15/21 Rx rosuvastatin 5 mg tablet 5 mg PO QAM 08/22/21 09/15/21 History Patient History Medical History Acid reflux disease Allergic rhinitis Anxiety Asthma Cardiac pacemaker Implanted 2014 (second pacemaker) [employer] device. Hx Mobitz type 2 second degree AVB. Follows with [facility] Cardiology [place]. Depression Diabetes mellitus NIDDM Generalized osteoarthritis of multiple sites Hyperlipidemia Hyperparathyroidism Hypertension Iron deficiency anemia Hx Morbid obesity Urinary incontinence Surgical History H/O colonoscopy H/O dilation and curettage H/O shoulder replacement Left reverse TSA 06/2017: Attempt MAC 4 (unable to visualize) > Grade 2 view with glidescope, ETT# 7 + PNB, (small amt of blood noted past nasal pharynx/small laceration of left upper lip). History of esophagogastroduodenoscopy (EGD) S/P cholecystectomy S/P placement of cardiac pacemaker S/P tonsillectomy and adenoidectomy Family History Mother Breast cancer Hypertension Brother Coronary heart disease Family/Other No problems noted. Father Coronary heart disease Grandmother (Maternal) No problems noted. Grandmother (Paternal) Diabetes Other No family history of adverse response to anesthesia Social History Smoking Status: Never smoker Second Hand Exposure: Yes (FATHER SMOKED); Do You Dip or Chew Tobacco: No; Tobacco Cessation Education Requested by Patient: No Hx Alcohol Use: No Hx Substance Use: No Preferred Language: Liberian Communication Ability: Effective Visual Impairment: Partially Limited Hearing Ability: Normal Master Scheduler Required: No Beliefs That Will Affect Care: None marital status: Single Current Living Situation: Alone current occupational status: retired How many Children do You have: 0 Other Information That Helps Us Care for You: No Feels Safe at Home: Yes Safety Concerns: Feels Safe At This Time Seatbelt Use: always Assistive Devices: Cane and Walker Results & Data Results & Data ([facility]) Vital Signs (Past 12 Hours) Vital Signs Temp Pulse Resp BP Pulse Ox O2 Del Method 09/16/21 14:43 36.8 C 86 16 113/70 93 Room Air 09/16/21 11:18 36.8 C 92 H 16 134/73 92 Room Air PG Care Time/CCT Total # of Minutes Spent Total Time Spent with Patient: Total time spent is greater than 50% in coordination of care (as documented) at patient's floor/unit and/or counseling patient: Coding Diagnoses Primary osteoarthritis of right knee M17.11 Hypertension I10 Hypertension type: essential hypertension Hyperparathyroidism E21.3 Hyperlipidemia E78.2 Hyperlipidemia type: mixed hyperlipidemia Diabetes mellitus E11.9 Diabetes mellitus type: type 2 Diabetes mellitus skilled nursing insulin use: without ad terminal makeup operator use Diabetes mellitus complication status: without complication (1) Hypertension Hypertension type: essential hypertension Qualified Code(s): I10 - Essential (primary) hypertension (2) Hyperlipidemia Hyperlipidemia type: mixed hyperlipidemia Qualified Code(s): E78.2 - Mixed hyperlipidemia (3) Diabetes mellitus Diabetes mellitus type: type 2 Diabetes mellitus skilled nursing insulin use: without skilled nursing use Diabetes mellitus complication status: without complication Qualified Code(s): E11.9 - Type 2 diabetes mellitus without complications
[2021-09-16] MEDS ORDERED: CALCIUM CARBONATE 500 MG CHEWABLE TAB PO PRN (22:32)
[2021-09-17] MEDS: ACETAMINOPHEN 500 MG TAB PO SCH ×2 (05:17→13:01)
[2021-09-17] MEDS: oxyCODONE HCL IR 5 MG TAB (IMMEDIATE RELEASE) PO PRN ×2 (09:02→13:01)
[2021-09-17] MEDS: DOCUSATE SODIUM 100 MG CAP PO SCH (09:03)
[2021-09-17] MEDS: ESOMEPRAZOLE PO SCH (09:04)
[2021-09-17] MEDS: IRBESARTAN 150 MG TAB PO SCH (09:05)
[2021-09-17] MEDS: ZYRTEC PO SCH (09:05)
[2021-09-17] MEDS: RIVAROXABAN 10 MG TABLET PO SCH (09:06)
[2021-09-17] MEDS: MULTIVITAMIN TAB PO SCH (09:06)
[2021-09-17] MEDS: MIRABEGRON ER 25 MG TAB PO SCH (09:06)
[2021-09-17] MEDS: ROSUVASTATIN CALCIUM 5 MG TAB PO SCH (09:07)
[2021-09-17] MEDS: CYANOCOBALAMIN (B-12) 500 MCG TABLET PO SCH (09:07)
[2021-09-17] MEDS: INSULIN ASPART PER UNIT SC SCH ×2 (09:55→12:44)
[2021-09-17] MEDS: amLODIPine BESYLATE 5 MG TAB PO SCH (09:56)
--- NOTE | 2021-09-17 13:33 | Orthopedic Progress Note ---
Date of Service September 17, 2021 Assessment & Plan (1) Primary osteoarthritis of right knee: Plan: Postop day #2 right total knee -PT/OT -Pain management as written -DVT prophylaxis: SCDs, teds, Xarelto 10 mg daily -Discharge planning: Plan for [facility] today. Pt is progressing well. There is no need for a 3 night stay at this time and patient can be discharged to SNF when transport is available. Admission and Anticipated Discharge Date Admission Date: September 16, 2021 Subjective POD 2 Pt lying in bed. No complaints. Comfortable. Pt was having pain earlier this AM and was somewhat tearful about things that occurred last night concerning the housekeeping crew coming in to clean the bed next to her. Pt was apparently somewhat confused and ended up walking out into the araya shouting for help. Pt was then told the gentleman was from and was there to clean the room. Currently she is feeling better now. She feels she is ready to go to [facility]. Physical Exam Physical Exam: DANIEL dressing with scant drainage. Calves soft, NT. NV intact. Results & Data ([facility]) Vital Signs (Past 12 Hours) Vital Signs Temp Pulse Resp BP Pulse Ox O2 Del Method 09/17/21 08:13 37.1 C 112 H 20 136/83 94 Room Air
[2021-09-17] MEDS ORDERED: LANTUS PER UNIT CHARGE SQ ONE (21:00)
[2021-09-18] MEDS ORDERED: metFORMIN HCL 500 MG TAB PO SCH (08:00)
--- NOTE | 2021-09-18 08:46 | Discharge Summary ---
Date of Service September 18, 2021 Admission HPI Per Admitting Provider 71 year old female with PMHx significant for DM2, GERD, asthma, HTN, pacemaker who presents with ongoing right knee pain. Pain interfering with daily activities. She has failed conservative measures including injections. She would like to proceed with surgical intervention. Patient denies headaches, sweats, fevers, chills, double vision, blurred vision, cough, sore throat, dysphagia, chest pain, sob, wheezing, n/v/d/c, numbness, tingling, fatigue, urinary symptoms, mood disorders. ROS positive for right knee pain and stiffness. Admission Exam Per Admitting Provider Constitutional: well developed and well nourished; no acute distress Eyes: PERRL, conjunctivae normal, anicteric sclerae ENMT: external ear and nose normal, oropharynx normal Neck: trachea midline, no thyromegaly Respiratory: normal respiratory effort, lungs clear to auscultation Cardiovascular: RRR, no murmur, no edema Musculoskeletal: Right knee: Varus alignmenbt. tenderness medial joint line. Crepitation with ROM. Stable to valgus and varus stress. Positive Randa's. ROM 10-100 degrees. Skin: no rashes, warm and dry Neurologic: patellar DTR's 2+ bilat, sensation intact Psychiatric: A+Ox3, euthymic affect Principal Diagnosis Right knee osteoarthritis Discharge Exam DANIEL dressing with scant drainage. Calves soft, NT. NV intact. Constitutional WD/WN, vitals as above Discharge Data Allergies Allergy/AdvReac Type Severity Reaction Status Date / Time chlorhexidine Allergy Intermediate Rash, Verified 09/15/21 10:36 burning adhesive Allergy Unknown Skin Verified 09/15/21 10:36 irritation (with tape) amoxicillin Allergy Unknown Dizziness, Verified 09/15/21 10:36 rash cefuroxime Allergy Unknown Hives Verified 09/15/21 10:36 clavulanic acid Allergy Unknown Dizziness, Verified 09/15/21 10:36 [From Augmentin] rash latex Allergy Unknown Rash Verified 09/15/21 10:36 perfume Allergy SNEEZES, Verified 09/15/21 10:36 EYES WATER, SOB, SINUS FLORES Consultations 09/12/21 09:52 Consult Hospitalist Routine Procedures Performed Operation Date: 09/15/21 11:55 Actual Procedures p Right Total Knee Arthroplasty - Doyle Cota MD Ordered Studies 09/15/21 05:00 US - OR guided needle placemen Routine Hospital Course (1) Primary osteoarthritis of right knee: Postop day #2 right total knee -PT/OT -Pain management as written -DVT prophylaxis: SCDs, teds, Xarelto 10 mg daily -Discharge planning: Plan for [facility] today. Pt is progressing well. There is no need for a 3 night stay at this time and patient can be discharged to SNF when transport is available. Postop day #1 right total knee -PT/OT -Pain management as written -DVT prophylaxis: SCDs, teds, Xarelto 10 mg daily -A.m. labs pending -Discharge planning: Patient currently inpatient rehab. She would like to get evaluated. Case management consult has been placed. Lab Results 09/15/21 09/15/21 09/15/21 Range/Units 10:15 10:40 16:58 WBC (4.8-10.8) K/ul RBC (3.93-5.22) M/uL Hgb (12.0-16.0) g/dl Hct (34.1-44.9) % MCV (80.0-100.0) fL MCH (25.0-34.0) pg MCHC (32.0-36.0) g/dL RDW Std Deviation (36.4-46.3) fL RDW Coeff of Franky (11.5-14.5) % Plt Count (130-400) K/uL MPV (9.4-12.3) fL Sodium (136-145) mmol/L Potassium (3.5-5.1) mmol/L Chloride (98-107) mmol/L Carbon Dioxide (21-32) mmol/L Anion Gap (3-11) BUN (6-23) mg/dl Creatinine (0.6-1.2) mg/dl Est Cr Clr Drug Dosing ml/min Est GFR ( Amer) ml/min Est GFR (Non-Af Amer) ml/min BUN/Creatinine Ratio (10-20) Glucose (70-99(Fasting)) mg/dl POC Glucose 166 H 194 H (70-99) mg/dl Calcium (8.5-10.1) mg/dl SARS-CoV-2, RNA, NAAT NEGATIVE (NEGATIVE) 09/15/21 09/16/21 09/16/21 Range/Units 20:38 01:37 08:26 WBC (4.8-10.8) K/ul RBC (3.93-5.22) M/uL Hgb (12.0-16.0) g/dl Hct (34.1-44.9) % MCV (80.0-100.0) fL MCH (25.0-34.0) pg MCHC (32.0-36.0) g/dL RDW Std Deviation (36.4-46.3) fL RDW Coeff of Franky (11.5-14.5) % Plt Count (130-400) K/uL MPV (9.4-12.3) fL Sodium (136-145) mmol/L Potassium (3.5-5.1) mmol/L Chloride (98-107) mmol/L Carbon Dioxide (21-32) mmol/L Anion Gap (3-11) BUN (6-23) mg/dl Creatinine (0.6-1.2) mg/dl Est Cr Clr Drug Dosing ml/min Est GFR ( Amer) ml/min Est GFR (Non-Af Amer) ml/min BUN/Creatinine Ratio (10-20) Glucose (70-99(Fasting)) mg/dl POC Glucose 289 H 200 H 153 H (70-99) mg/dl Calcium (8.5-10.1) mg/dl SARS-CoV-2, RNA, NAAT (NEGATIVE) 09/16/21 09/16/21 09/16/21 Range/Units 08:30 08:30 12:08 WBC 10.50 (4.8-10.8) K/ul RBC 4.13 (3.93-5.22) M/uL Hgb 10.9 L (12.0-16.0) g/dl Hct 33.8 L (34.1-44.9) % MCV 81.8 (80.0-100.0) fL MCH 26.4 (25.0-34.0) pg MCHC 32.2 (32.0-36.0) g/dL RDW Std Deviation 43.4 (36.4-46.3) fL RDW Coeff of Franky 14.7 H (11.5-14.5) % Plt Count 213 (130-400) K/uL MPV 10.6 (9.4-12.3) fL Sodium 139 (136-145) mmol/L Potassium 4.1 (3.5-5.1) mmol/L Chloride 107 (98-107) mmol/L Carbon Dioxide 25 (21-32) mmol/L Anion Gap 7 (3-11) BUN 13 (6-23) mg/dl Creatinine 0.79 (0.6-1.2) mg/dl Est Cr Clr Drug Dosing 73.1 ml/min Est GFR ( Amer) 87.3 ml/min Est GFR (Non-Af Amer) 75.3 ml/min BUN/Creatinine Ratio 16.5 (10-20) Glucose 168 H (70-99(Fasting)) mg/dl POC Glucose 138 H (70-99) mg/dl Calcium 9.6 (8.5-10.1) mg/dl SARS-CoV-2, RNA, NAAT (NEGATIVE) 09/16/21 09/16/21 09/17/21 Range/Units 17:03 20:31 08:23 WBC (4.8-10.8) K/ul RBC (3.93-5.22) M/uL Hgb (12.0-16.0) g/dl Hct (34.1-44.9) % MCV (80.0-100.0) fL MCH (25.0-34.0) pg MCHC (32.0-36.0) g/dL RDW Std Deviation (36.4-46.3) fL RDW Coeff of Franky (11.5-14.5) % Plt Count (130-400) K/uL MPV (9.4-12.3) fL Sodium (136-145) mmol/L Potassium (3.5-5.1) mmol/L Chloride (98-107) mmol/L Carbon Dioxide (21-32) mmol/L Anion Gap (3-11) BUN (6-23) mg/dl Creatinine (0.6-1.2) mg/dl Est Cr Clr Drug Dosing ml/min Est GFR ( Amer) ml/min Est GFR (Non-Af Amer) ml/min BUN/Creatinine Ratio (10-20) Glucose (70-99(Fasting)) mg/dl POC Glucose 131 H 136 H 173 H (70-99) mg/dl Calcium (8.5-10.1) mg/dl SARS-CoV-2, RNA, NAAT (NEGATIVE) 09/17/21 09/17/21 Range/Units 12:17 12:30 WBC (4.8-10.8) K/ul RBC (3.93-5.22) M/uL Hgb (12.0-16.0) g/dl Hct (34.1-44.9) % MCV (80.0-100.0) fL MCH (25.0-34.0) pg MCHC (32.0-36.0) g/dL RDW Std Deviation (36.4-46.3) fL RDW Coeff of Franky (11.5-14.5) % Plt Count (130-400) K/uL MPV (9.4-12.3) fL Sodium (136-145) mmol/L Potassium (3.5-5.1) mmol/L Chloride (98-107) mmol/L Carbon Dioxide (21-32) mmol/L Anion Gap (3-11) BUN (6-23) mg/dl Creatinine (0.6-1.2) mg/dl Est Cr Clr Drug Dosing ml/min Est GFR ( Amer) ml/min Est GFR (Non-Af Amer) ml/min BUN/Creatinine Ratio (10-20) Glucose (70-99(Fasting)) mg/dl POC Glucose 177 H (70-99) mg/dl Calcium (8.5-10.1) mg/dl SARS-CoV-2, RNA, NAAT NEGATIVE (NEGATIVE) Total Time Total Time Spent Total Time Spent (In Minutes): 20 Discharge Plan Discharge Items Patient Disposition: Transfer [facility] Fac Reason For Visit: Right Knee Osteoarthritis Discharge Diagnosis: Right knee osteoarthritis Activity: Per Instructions section Weightbearing: Right weightbearing Weightbearing Comment: as tolerated with walker Non-emergency contact: Surgeon Call non-emergency contact if: you have any medication questions, your pain is not controlled, your pain is concerning for you, you have a fever, your temperature is above 101, your wound has increased redness and your wound has increased drainage Follow-up/Referrals: Gisselle Urena MD [Primary Care Provider] - Doyle Cota MD [Surgeon] - (Follow up with Dr. Cota in 2 weeks from the day of your surgery.) Diet: Carb Consistent or DM2 Addtl Attending Provider Instructions: ACTIVITY RECOMMENDATIONS: SELF CARE INSTRUCTIONS AFTER TOTAL KNEE REPLACEMENT A. You may need to continue a physical therapy program after discharge from the hospital. There are several options available to you. Your doctor will assist you in selecting the best one for you. 1. An out-patient facility 2 to 3 times a week for therapy or home therapy. 2. Continue working on all exercises taught to you in the hospital. Your goals should be to increase bending of your knee to 90 degrees and beyond and to fully straighten your knee. B. You may progress at your own pace from walking with a walker or crutches to a cane; then to no assistive devices. C. Make walking a part of your daily routine. Be up as much as comfortable with rest periods throughout the day. Rest with leg elevation is very important. Use the ice wrap frequently for the first 3-4 weeks. D. There are no restrictions on activities. You may ride in a car, shop, participate in balling machine operator and all social activities. E. Wear the long elastic stockings (RAIZA hose) 20 hours a day for 2 weeks after surgery. They can be removed several times a day for laundering and for a bath. F. You may shower, no tub baths until cleared by your doctor. SPECIAL CARE INSTRUCTIONS: VERY IMPORTANT TO READ AND REVIEW A. There are a few signs you need to watch for after you are home. Call [facility] if you notice any of the followin. Increased severe knee pain. Some pain is expected especially when you exercise. 2. Increased swelling in your leg or knee; pain or swelling of the calf muscle in either lower leg. 3. Any fluid drainage from the incision. 4. Shortness of breath or chest pain. B. Please call [facility] at if you have any concerns or questions about your operation or recovery. The doctor or his nurse will return your call promptly. C. You must take antibiotics before dental work, bladder, bowel or other trey kely. Your doctor will provide you with a permanent care to carry describing this precaution. IMPORTANT: * REMEMBER TO TAKE ASPIRIN, 81 MG, TWICE DAILY FOR 4 WEEKS UNLESS OTHERWISE DIRECTED. THIS IS YOUR BLOOD THINNER. * HIGH RISK PATIENTS MAY BE PRESCRIBED A STRONGER BLOOD THINNER. THIS WILL BE PROVIDED AT DISCHARGE. * CALL IF INCREASED PAIN, REDNESS, DRAINAGE OR FEVER GREATER THAT 101. * WEAR RAIZA HOSE 20 HOURS PER DAY FOR 2 WEEKS. This is a large suction dressing covering your incision. This will help pull any excess drainage from the wound and allow your incision to heal properly. You may shower with this if you can keep the unit outside of the shower. If any bleeding or leakage is noted please call your doctor's office. This will remain on your incision for 7 days and then should be removed. This can be done yourself or by the home nursing staff if applicable. The entire unit is disposable once removed. Once removed, keep incision clean and dry. If redness or drainage is noted, please call your surgeon. IF INCISION IS LEAKING THROUGH DRESSING, CALL THE OFFICE . FOLLOW UP VISIT: If appointment is not already scheduled: Please call [facility] to make a follow-up appointment for 2 weeks after your surgery at . Stand-Alone Forms: My [facility] [employer] Skilled Items Lines: None Urinary Catheter: No Medications and DC Order Prescriptions: New Xarelto 10 mg Tablet 10 mg PO DAILY 30 Days Qty: 30 0RF acetaminophen [Tylenol Extra Strength] 500 mg Tablet 1,000 mg PO Q8 84 Days Qty: 504 0RF polyethylene glycol 3350 [Miralax] 17 gram powder in packet 17 g PO DAILY PRN (Reason: constipation) Qty: 5 0RF oxycodone 5 mg tablet 5 - 10 mg PO Q6H PRN (Reason: pain) Qty: 24 0RF Continued metformin 1,000 mg tablet 1,000 mg PO BID Qty: 180 3RF albuterol sulfate 90 mcg/actuation HFA aerosol inhaler 2 puff inhalation Q4H PRN (Reason: shortness of breath) Qty: 18 2RF hydroxyzine HCl 25 mg tablet 12.5 mg PO HS 90 Days Qty: 45 0RF Premarin 0.625 mg/gram cream 0.625 mg vaginal .weekly Qty: 30 2RF amlodipine 2.5 mg tablet 2.5 mg PO QAM Qty: 90 3RF irbesartan 300 mg tablet 300 mg PO QAM Qty: 90 3RF Rx Instructions: replaces losartan Trulicity 0.75 mg/0.5 mL pen injector 0.75 mg subcut .weekly Qty: 2 5RF pindolol 10 mg tablet 10 mg PO BID Qty: 180 3RF esomeprazole magnesium [Nexium] 20 mg capsule,delayed release(DR/EC) 40 mg PO BID Qty: 90 3RF (DME) OneTouch Ultra Blue Test Strip strip See Dose Instructions .ROUTE .MEDSUPPLY Qty: 100 3RF Dose Instruction: As directed Rx Instructions: As directed once a day (DME) lancets [OneTouch Delica Lancets] 33 gauge misc See Dose Instructions .ROUTE .MEDSUPPLY Qty: 100 3RF Dose Instruction: As directed Rx Instructions: As directed once a day cetirizine 10 mg tablet 10 mg PO QAM cyanocobalamin (vitamin B-12) 1,000 mcg tablet 1,000 mcg PO QAM Myrbetriq 50 mg tablet extended release 24 hr 50 mg PO QAM melatonin 5 mg tablet 2.5 mg PO HS rosuvastatin 5 mg tablet 5 mg PO QAM Discontinued oxycodone-acetaminophen 5-325 mg tablet 1 tab PO Q6H PRN (Reason: pain) Qty: 100 0RF Discharge Orders: Discharge Order (Routine); Ordered 09/17/21 Ordered By: Bandar Mary Admission Data Admit Date/Time: 09/16/21 10:54 Attending Provider: Doyle Cota Admit Provider: Doyle Cota Primary Care Provider: Gisselle Urena Other Providers: Julio [facility] [place] Other Interventions: Discharge Summary Assessment (RN) Last Done: 09/17/21 10:35
== END 2021-09-17 16:07 | DRG 470 ==
LOC: 3W 09:59 → ASU 09:59
DX: J45.909 Unspecified asthma, uncomplicated; K21.9 Gastro-esophageal reflux disease without esophagitis; Z88.0 Allergy status to penicillin; E78.5 Hyperlipidemia, unspecified; M17.11 Unilateral primary osteoarthritis, right knee; Z88.2 Allergy status to sulfonamides; Z79.84 Long term (current) use of oral hypoglycemic drugs; E66.01 Morbid (severe) obesity due to excess calories; I10 Essential (primary) hypertension; Z90.49 Acquired absence of other specified parts of digestive tract; E21.3 Hyperparathyroidism, unspecified; Z90.09 Acquired absence of other part of head and neck; Z91.040 Latex allergy status; Z68.41 Body mass index [BMI] 40.0-44.9, adult; F41.9 Anxiety disorder, unspecified; Z91.048 Other nonmedicinal substance allergy status; Z96.642 Presence of left artificial hip joint; Z95.0 Presence of cardiac pacemaker; E11.9 Type 2 diabetes mellitus without complications; F32.A Depression, unspecified; Z88.1 Allergy status to other antibiotic agents